=== PATIENT | female | born 1990 | race African-American/Black ===

== ENCOUNTER 2016-04-28 16:39 | Emergency (ER) | payer OTHER ==
[2016-04-28 16:58] VITALS: RESP 18
[2016-04-28] MEDS ORDERED: SODIUM CHLORIDE 0.9% 1,000 ML IV ONE (18:32)
[2016-04-28] MEDS ORDERED: ACETAMINOPHEN IV (For NPO) 1,000 MG in EMPTY BAG 1 BAG IVPB STA (18:33)
[2016-04-28 19:39] LABS: Appearance,Urine Clear (Clear); Bacteria,Urine Occasional /hpf; Bilirubin,Urine Negative (Negative); Glucose,Urine (UA) Negative (Negative); Ketones,Urine Negative (Negative); Leukocyte Esterase,Urine Large (Negative); Mucus,Urine Rare /hpf; Nitrite,Urine Negative (Negative); PH, Urine 6.5 (5.0-8.0); Particle Count 3645; Protein,Urine Negative (Negative); RBC,Urine <1 /hpf (0-5); Squamous Epithelial Cell,Urine 8 /hpf (0-4); UA Billing (MACRO vs. MICRO) MICRO; Urobilinogen,Urine <2.0 mg/dL (<2.0); WBC,Urine 5 /hpf (0-5)
[2016-04-28 20:24] LABS: Basophils # (A) 0.1 k/uL (0-0.2); Basophils % (A) 1 %; CH 30.2; CHCM 34.6; Eosinophils # (A) 0.2 k/uL (0-0.7); Eosinophils % (A) 2 %; HCT 41.5 % (34.0-46.0); HDW 2.22; HGB 13.8 gm/dL (11.4-16.0); Luc % (Auto) 1; Lymphocytes # (A) 2.5 k/uL (1.0-4.8); Lymphocytes % (A) 30 %; MCHC 33.1 g/dL (31.0-37.0); MCV 87.6 fL (80.0-100.0); Mean Platelet Volume 6.7; Monocytes # (A) 0.4 k/uL (0-1.0); Monocytes % (A) 5 %; Neutrophils # (A) 5.1 k/uL (1.3-7.7); Neutrophils % (A) 61 %; RBC 4.74 m/uL (3.80-5.40); RDW 12.7 % (11.5-15.5); WBC 8.4 k/uL (3.8-10.6); WBC (Perox) 8.31
[2016-04-28 20:37] LABS: ALT 79 U/L (9-52); AST 40 U/L (14-36); Alkaline Phosphatase 60 U/L (38-126); Anion Gap 14 mmol/L; Blood Urea Nitrogen 6 mg/dL (7-17); Calcium 10.6 mg/dL (8.4-10.2); Carbon Dioxide 23 mmol/L (22-30); Chloride 102 mmol/L (98-107); Glucose 89 mg/dL (74-99); Non-African American GFR(MDRD) >60 (>60 ml/min/1.73 sqM); Potassium 4.4 mmol/L (3.5-5.1); Sodium 139 mmol/L (137-145); Total Bilirubin 0.5 mg/dL (0.2-1.3); Total Protein 8.6 g/dL (6.3-8.2)
--- NOTE | 2016-04-28 21:07 | US ---
EXAMINATION TYPE: US OB <=14 wks transvag DATE OF EXAM: 04/28/2016 8:43 PM COMPARISON: NONE CLINICAL HISTORY: EC patient with LLQ pain x 4 weeks; EXAM PERFORMED: Transvaginal (TV) and Transabdominal (TA) EXAM MEASUREMENTS: GESTATIONAL AGE / DATING Physician Established: not established Dates by LMP: ( 7 weeks/0 days) EDC: 12/15/2016 Dates by First Scan: today Dates by Current Scan: (6 weeks/5 days) EDC: 12/17/2016 MATERNAL ANATOMY Uterus: 9.4 x 6.0 x 5.2cm; anteverted, couple of Nabothian cysts in CX Right Ovary: 3.8 x 2.7 x 2.9cm Left Ovary: 2.9 x 1.5 x 1.7cm Post CDS / Adnexa: wnl Presence of free fluid: small amount in posterior CDS = 2.3 x 1.4 x 0.7cm Presence of corpus luteal cyst: in right ovary = 2.7 x 2.3 x 2.3cm Presence of subchorionic bleed: hypoechoic area at superior uterus = 1.0 x 2.9 x 0.3cm GESTATION / SURVEY CRL: 0.8cm (6 weeks/5 days) Yolk Sac (normal less than 6mm): 2.3mm Heart Rate: 127 bpm Rhythm: Normal IUP: Viable IUP Date of LMP: 03/10/2016 Beta HcG (if available): detected in urine TECHNOLOGIST IMPRESSION: Single, live, IUP,6 weeks/5 days, EDC: 12/17/2016, HR 127bpm; possible LIDIA superior to gestational sac. IMPRESSION: There is a small fluid collection adjacent to the gestational sac suggestive of a minimal subchorioni c hemorrhage. This measures 10 x 3 mm. The ultrasound gestational age is 6 weeks 5 days. There is min imal free fluid in the cul-de-sac.
[2016-04-28 21:25] LABS: HCG,Quantitative Serum 36407.9 mIU/mL
--- NOTE | 2016-04-28 21:33 | ED ---
General Adult HPI - General Chief complaint: Abdominal Pain Stated complaint: abd pain/headache/nausea Time Seen by Provider: 04/28/16 17:51 Source: patient Mode of arrival: ambulatory - History of Present Illness Initial comments: 26-year-old female presented for evaluation of left lower quadrant abdominal pain for the last 3 weeks with associated nausea. She states that she had scheduled an appointment with her primary care physician but was unable to wait until May 15 to go and see him. She denies any associated vomiting, vaginal discharge, vaginal bleeding, lightheadedness, dizziness, fevers, chills. When asked if she could be she positive and stated that she actually hadn't had her period since February and that this was a possibility. She states her and her been trying to get for some time but a been unable to do so. - Related Data Home Medications Medication Instructions Recorded Confirmed Albuterol Inhaler [Ventolin Hfa 1 - 2 puff INHALATION RT-Q6H PRN 04/28/16 Inhaler] Previous Rx's Medication Instructions Recorded Dcw-Rmnf-Dyrsy Acid 1 cap PO DAILY #30 cap 04/28/16 [-U Capsule] Allergies Allergy/AdvReac Type Severity Reaction Status Date / Time ibuprofen [From Motrin] Allergy Unknown Verified 04/28/16 17:53 Review of Systems ROS Statement: Those systems with pertinent positive or pertinent negative responses have been documented in the HPI. General: Patient denies fever, chills, or vomiting. Positive nausea. HEENT: No visual changes. No eye pain. No nasal symptoms. No dysphagia.No odynophagia. No ENT pain. Cardiac: No chest pain. No palpitations. Pulmonary; No dyspnea. Denies cough GI: Positive left lower quadrant abdominal pain. Positive loose stools. No constipation. No bowel habit changes. No melena. No hematochezia. : No dysuria.No hematuria. No hesitancy. No urgency. No renal lithiasis history. Musculoskeletal: No musculoskeletal pain. Orthopedic: Denies fracture history. Integumentary: Denies rash. Denies pruritis. Neurologic: Denies any lateralizing weakness. Denies numbness. Denies tingling. No seizure activity. Denies TIA or CVA. Heme/Onc: Denies anemia. Denies cancer. Denies adenopathy. ROS Other: All systems not noted in ROS Statement are negative. Past Medical History Past Medical History: No Reported History History of Any Multi-Drug Resistant Organisms: None Reported Additional Past Surgical History / Comment(s): Eye surgery Past Psychological History: No Psychological Hx Reported Smoking Status: Never smoker Past Alcohol Use History: Occasional Past Drug Use History: None Reported General Exam - General Exam Comments Initial Comments: General: The patient is awake and alert, in no distress, and does not appear acutely ill. Eye: Pupils are equal, round and reactive to light, extra-ocular movements are intact; there is normal conjunctiva bilaterally. No signs of icterus. Ears, nose, mouth and throat: There are moist mucous membranes and no oral lesions. Neck: The neck is supple, there is no tenderness or JVD. Cardiovascular: There is a regular rate and rhythm. No murmur, rub or gallop is appreciated. Respiratory: Lungs are clear to auscultation, respirations are non-labored, breath sounds are equal. No wheezes, stridor, rales, or rhonchi. Gastrointestinal: Soft, non-distended, mild superpubic and left lower quadrant abdominal tenderness. There is no rebound or guarding present. No CVA tenderness. Bowel sounds are unremarkable. Back: There is no tenderness to palpation in the midline. There is no obvious deformity. No rashes noted. Musculoskeletal: Normal ROM, no tenderness, There is no pedal edema. There is no calf tenderness or swelling. Sensation intact. Pulses equal bilaterally 2+. Neurological: CN II-XII intact, There are no obvious motor or sensory deficits. Coordination appears grossly intact. Speech is normal. Skin: Skin is warm and dry and no rashes or lesions are noted. Psychiatric: Cooperative, appropriate mood & affect, normal judgment. Course Vital Signs 04/28/16 04/28/16 16:55 22:24 Temperature 98.6 F 99.2 F Pulse Rate 73 70 Respiratory 18 18 Rate Blood Pressure 120/67 109/63 O2 Sat by Pulse 100 99 Oximetry Medical Decision Making - Medical Decision Making 26-year-old female presenting for evaluation of left lower quadrant abdominal pain for the last 3 weeks. She has an appointment set up with her primary care physician for May 15 but son about the wait that long. Physical examination confirm left lower quadrant abdominal pain with suprapubic tenderness as well. There are no peritoneal signs, rigidity, or guarding. She states it is a possibility that she's and she hasn't had a period since February. We'll obtain labs, ultrasound pelvis, and provide IV fluids and Zofran. Labs revealed positive urine test and a quantitative beta hCG was ordered. Pelvic ultrasound revealed a 6 week 5 day IUP with mild subchorionic hemorrhage. The beta-hCG was also appropriately elevated. She was informed of these results and that she would be given a prescription for vitamins and instructions to follow-up with her [employer]CH[employer]IC. She was further advised to return to this facility if her symptoms are worsened or persist. She was reevaluated and had improvement in her symptoms. She acknowledged an understanding of this information and agreed with this plan of care. Pt was not given a prescription for her bacteriuria. An attempt was made to call but there was no answer. A message was left on her voicemail to call the hospital to obtain antibiotic for her bacteriuria. - Lab Data Result diagrams: 04/28/16 20:10 04/28/16 20:10 Lab Results 04/28/16 04/28/16 04/28/16 Range/Units 19:25 19:25 20:10 WBC 8.4 (3.8-10.6) k/uL RBC 4.74 (3.80-5.40) m/uL Hgb 13.8 (11.4-16.0) gm/dL Hct 41.5 (34.0-46.0) % MCV 87.6 (80.0-100.0) fL MCH 29.0 (25.0-35.0) pg MCHC 33.1 (31.0-37.0) g/dL RDW 12.7 (11.5-15.5) % Plt Count 365 (150-450) k/uL Neutrophils % 61 % Lymphocytes % 30 % Monocytes % 5 % Eosinophils % 2 % Basophils % 1 % Neutrophils # 5.1 (1.3-7.7) k/uL Lymphocytes # 2.5 (1.0-4.8) k/uL Monocytes # 0.4 (0-1.0) k/uL Eosinophils # 0.2 (0-0.7) k/uL Basophils # 0.1 (0-0.2) k/uL Sodium (137-145) mmol/L Potassium (3.5-5.1) mmol/L Chloride (98-107) mmol/L Carbon Dioxide (22-30) mmol/L Anion Gap mmol/L BUN (7-17) mg/dL Creatinine (0.52-1.04) mg/dL Est GFR (MDRD) Af Amer (>60 ml/min/1.73 sqM) Est GFR (MDRD) Non-Af (>60 ml/min/1.73 sqM) Glucose (74-99) mg/dL Calcium (8.4-10.2) mg/dL Total Bilirubin (0.2-1.3) mg/dL AST (14-36) U/L ALT (9-52) U/L Alkaline Phosphatase (38-126) U/L Total Protein (6.3-8.2) g/dL Albumin (3.5-5.0) g/dL HCG, Quant mIU/mL Urine Color Yellow Urine Appearance Clear (Clear) Urine pH 6.5 (5.0-8.0) Ur Specific [place] 1.010 (1.001-1.035) Urine Protein Negative (Negative) Urine Glucose (UA) Negative (Negative) Urine Ketones Negative (Negative) Urine Blood Negative (Negative) Urine Nitrate Negative (Negative) Urine Bilirubin Negative (Negative) Urine Urobilinogen <2.0 (<2.0) mg/dL Ur Leukocyte Esterase Large H (Negative) Urine RBC <1 (0-5) /hpf Urine WBC 5 (0-5) /hpf Ur Squamous Epith Cells 8 H (0-4) /hpf Urine Bacteria Occasional H (None) /hpf Urine Mucus Rare H (None) /hpf Urine HCG, Qual Detected (Not Detectd) 04/28/16 Range/Units 20:10 WBC (3.8-10.6) k/uL RBC (3.80-5.40) m/uL Hgb (11.4-16.0) gm/dL Hct (34.0-46.0) % MCV (80.0-100.0) fL MCH (25.0-35.0) pg MCHC (31.0-37.0) g/dL RDW (11.5-15.5) % Plt Count (150-450) k/uL Neutrophils % % Lymphocytes % % Monocytes % % Eosinophils % % Basophils % % Neutrophils # (1.3-7.7) k/uL Lymphocytes # (1.0-4.8) k/uL Monocytes # (0-1.0) k/uL Eosinophils # (0-0.7) k/uL Basophils # (0-0.2) k/uL Sodium 139 (137-145) mmol/L Potassium 4.4 (3.5-5.1) mmol/L Chloride 102 (98-107) mmol/L Carbon Dioxide 23 (22-30) mmol/L Anion Gap 14 mmol/L BUN 6 L (7-17) mg/dL Creatinine 0.56 (0.52-1.04) mg/dL Est GFR (MDRD) Af Amer >60 (>60 ml/min/1.73 sqM) Est GFR (MDRD) Non-Af >60 (>60 ml/min/1.73 sqM) Glucose 89 (74-99) mg/dL Calcium 10.6 H (8.4-10.2) mg/dL Total Bilirubin 0.5 (0.2-1.3) mg/dL AST 40 H (14-36) U/L ALT 79 H (9-52) U/L Alkaline Phosphatase 60 (38-126) U/L Total Protein 8.6 H (6.3-8.2) g/dL Albumin 5.0 (3.5-5.0) g/dL HCG, Quant 35258.9 mIU/mL Urine Color Urine Appearance (Clear) Urine pH (5.0-8.0) Ur Specific [place] (1.001-1.035) Urine Protein (Negative) Urine Glucose (UA) (Negative) Urine Ketones (Negative) Urine Blood (Negative) Urine Nitrate (Negative) Urine Bilirubin (Negative) Urine Urobilinogen (<2.0) mg/dL Ur Leukocyte Esterase (Negative) Urine RBC (0-5) /hpf Urine WBC (0-5) /hpf Ur Squamous Epith Cells (0-4) /hpf Urine Bacteria (None) /hpf Urine Mucus (None) /hpf Urine HCG, Qual (Not Detectd) Disposition Clinical Impression: Intrauterine , incidental, Subchorionic hemorrhage in first trimester , Abdominal pain affecting Disposition: HOME SELF-CARE Condition: Stable Instructions: Abdominal Pain in (ED) Additional Instructions: Please use medication as discussed. Please follow up with family doctor if symptoms have not improved over the next two days. Please return to the emergency room if your symptoms increase or worsen or for any other concerns. Prescriptions: Cww-Zibj-Qnxjy Acid [-U Capsule] 1 cap PO DAILY #30 cap Referrals: Ray Ward MD [Primary Care Provider] - 1-2 days Time of Disposition: 21:30
[2016-04-28 22:26] VITALS: BP 109/63; PULSE 70; TEMP 99.2
== END 2016-04-28 22:23 | disposition home or self-care (01) ==
LOC: EC 16:39
DX: O46.8X1 Other antepartum hemorrhage, first trimester (principal); R10.32 Left lower quadrant pain; O28.8 Other abnormal findings on antenatal screening of mother; Z3A.01 Less than 8 weeks gestation of pregnancy; Z88.6 Allergy status to analgesic agent
CPT/HCPCS: 36415; 76801; 76817; 80053; 81001; 81025; 84702; 85025; 99284

== ENCOUNTER → 2016-08-02 | Outpatient (CLI) | payer OTHER ==
--- NOTE | 2016-08-03 08:42 | US ---
EXAMINATION TYPE: US OB anatomy transabd DATE OF EXAM: 08/02/2016 4:31 PM COMPARISON: US HISTORY: O36.62X0 LARGE FOR DATES TECHNIQUE: EXAM MEASUREMENTS: GESTATIONAL AGE / DATING Physician Established: (20 weeks/5 days) EDC: 12/15/2016 Dates by LMP: (20 weeks/5 days) EDC: 12/15/2016 Dates by First Scan: (20 weeks/3 days) EDC: 12/17/2016 Dates by Current Scan for: (21 weeks/1 days) EDC: 12/12/2016 SURVEY IUP: Single PLACENTA: Anterior PREVIA: No previa TONE: 17.5 cm Normal CERVICAL LENGTH (transabdominal: norm > 3.0cm): 3.9 cm BIOMETRY PRESENTATION: Breech BPD: 4.9 cm 21 weeks / 0 days HC: 18.7 cm 21 weeks / 0 days AC: 16.3 cm 21 weeks / 3 days FL: 3.5 cm 21 weeks / 1 days ESTIMATED WEIGHT IN GRAMS: 410 grams ESTIMATED WEIGHT IN LBS/OZS: 0 lbs. 14 oz. WEIGHT PERCENTAGE BASED ON ESTABLISHED DATE: 74.6 % HC/AC: 1.2 Normal FL/AC: 21.7 Normal HEART RATE: 155 bpm RHYTHM: Normal ANATOMY SEEN (within normal limits): * Lateral Vent (< 1 cm) 0.5 cm * Cisterna Magna (< 1.1 cm) 0.5 cm * Nuchal Fold (< 0.6 cm) 0.3 cm * Cerebellum (varies with age) 1.9 cm Choroid Plexus (bilateral) Midline Falx Cavus Septi Pellucidi Four Chamber Heart Outflow tracts: LVOT/RVOT Stomach Situs Nose / Lips Kidneys (bilateral) Bladder Cord Insert Three Vessel Cord Longitudinal Spine Transverse Spine Arms (bilateral) Legs (bilateral) ANATOMY NOT SEEN: Diaphragm - missed growth according to dates, images out of sequence due to machine freezing up and needing to be reboot ed. IMPRESSION: 1. Single intrauterine gestation estimated at 21 weeks 1 day gestation based on the current ultrasoun d measurements. This would've a calculated EDC of 12/12/2016. Correlate this with her physician establ ished EDC of 12/15/2016. 2. Cardiac activity measures 155 bpm. 3. Diaphragm is not delineated on the current exam.
== END | disposition home or self-care (01) ==
LOC: RADUSWWP 15:21
PROVIDERS: ATTEND Obstetrics & Gynecology
DX: O36.62X0 Maternal care for excessive fetal growth, second trimester, not applicable or unspecified (principal); Z3A.21 21 weeks gestation of pregnancy
CPT/HCPCS: 76811

== ENCOUNTER → 2016-09-25 | Outpatient (CLI) | payer OTHER ==
[2016-09-25 10:26] LABS: CH 31.2; HCT 31.6 % (34.0-46.0); HGB 11.4 gm/dL (11.4-16.0); MCH 32.3 pg (25.0-35.0); MCHC 36.1 g/dL (31.0-37.0); MCV 89.5 fL (80.0-100.0); Mean Platelet Volume 6.1; RBC 3.53 m/uL (3.80-5.40); WBC 9.2 k/uL (3.8-10.6)
[2016-09-25 10:33] LABS: Glucose 155 mg/dL (74-99); Non-African American GFR(MDRD) >60 (>60 ml/min/1.73 sqM)
[2016-09-25 11:03] LABS: Hepatitis B Surface Ag Index 0.06
[2016-09-25 13:51] LABS: Appearance,Urine Cloudy (Clear); Bilirubin,Urine Negative (Negative); Glucose,Urine (UA) Negative (Negative); Ketones,Urine Negative (Negative); Leukocyte Esterase,Urine Small (Negative); Mucus,Urine Rare /hpf; Nitrite,Urine Negative (Negative); PH, Urine 5.5 (5.0-8.0); Particle Count 5335; Protein,Urine Negative (Negative); RBC,Urine 1 /hpf (0-5); Specific Gravity,Urine 1.012 (1.001-1.035); Squamous Epithelial Cell,Urine 6 /hpf (0-4); UA Billing (MACRO vs. MICRO) MICRO; Urobilinogen,Urine <2.0 mg/dL (<2.0); WBC,Urine 1 /hpf (0-5)
[2016-09-26 05:14] LABS: Toxoplasma Antibody (IgG) <3.0 IU/mL (<7.2)
[2016-09-26 06:38] LABS: HIV-1/HIV-2 Ab Screen NONREAC (NON REAC)
== END | disposition home or self-care (01) ==
LOC: LABWHC1 08:50
PROVIDERS: ATTEND Obstetrics & Gynecology
DX: Z34.82 Encounter for supervision of other normal pregnancy, second trimester (principal); Z3A.00 Weeks of gestation of pregnancy not specified
CPT/HCPCS: 36415; 81001; 82565; 82947; 83021; 85027; 86762; 86777; 86778; 86780; 86850; 86900; 86901; 87086; 87340; 87389

== ENCOUNTER → 2016-11-10 | Outpatient (CLI) | payer OTHER ==
[2016-11-10 15:44] LABS: Glucose 3 Hour, Gest 129 mg/dL
== END | disposition home or self-care (01) ==
LOC: LABWHC1 10:40
PROVIDERS: ATTEND Obstetrics & Gynecology
DX: O99.810 Abnormal glucose complicating pregnancy (principal); Z3A.00 Weeks of gestation of pregnancy not specified
CPT/HCPCS: 36415; 82951; 82952

== ENCOUNTER 2016-11-20 13:23 | Outpatient (CLI) | payer OTHER ==
[2016-11-20 14:18] LABS: Glucose,Whole Blood 123 mg/dL (75-99)
[2016-11-20 14:28] LABS: Appearance,Urine Cloudy (Clear); Bacteria,Urine Moderate /hpf; Bilirubin,Urine Negative (Negative); Glucose,Urine (UA) Negative (Negative); Ketones,Urine Negative (Negative); Leukocyte Esterase,Urine Negative (Negative); Mucus,Urine Occasional /hpf; Nitrite,Urine Negative (Negative); PH, Urine 5.5 (5.0-8.0); Particle Count 6587; Protein,Urine Trace (Negative); RBC,Urine <1 /hpf (0-5); Specific Gravity,Urine 1.012 (1.001-1.035); Squamous Epithelial Cell,Urine 4 /hpf (0-4); UA Billing (MACRO vs. MICRO) MICRO; Urobilinogen,Urine <2.0 mg/dL (<2.0); WBC,Urine 2 /hpf (0-5)
[2016-11-20 15:00] VITALS: BP 129/69; PULSE 103; RESP 18; TEMP 96.2
--- NOTE | 2017-02-14 08:18 | P.MSEPDOC ---
Presenting Problems - Arrival Data Date of Arrival on Unit: 11/20/16 Time of Arrival on Unit: 13:23 Mode of Transport: Ambulatory - Complaint OB-Reason for Admission/Chief Complaint: Decreased Movement Medical History - Information : 3 Para: 1 Term: 1 : 0 Abortions: Spontaneous or Elective: 1 Number of Living Children: 1 - Gestational Age Gestational Age by PRABHAKAR (wks/days): 36 Weeks and 3 Days - History Complications: GDM Comment: Diet controlled Review of Systems - Review of Systems Constitutional: No problems Breast: No problems ENT: No problems Cardiovascular: No problems Respiratory: No problems Gastrointestinal: No problems Genitourinary: No problems Musculoskeletal: No problems Neurological: No problems Skin: No problems Vital Signs - Temperature Temperature: 96.2 F Temperature Source: Skin - Pulse Brachial Pulse Rate: 103 Pulse Assessment Method: Automatic Cuff - Respirations Respiratory Rate: 18 Oxygen Delivery Method: Room Air - Blood Pressure Right Arm Blood Pressure: 129/69 Blood Pressure Mean: 89 Blood Pressure Source: Automatic Cuff Medical Screen Scoring (Pre) - Cervical Exam Dilation: Exam Deferred - Uterine Contractions Frequency: N/A - Maternal Vital Signs Maternal Temperature: N/A Maternal Blood Pressure: N/A Signs of Preeclampsia: N/A Maternal Respirations: N/A - Maternal Trauma Maternal Trauma: N/A - Assessment Baseline FHR: 150 Heart Rate - NICHD Category: Category I (Normal) = 0 NST: Reactive - Total Score Total Score (Pre): 0 - Level of Risk Level of Risk: Low (0-5) Physician Notification (Pre) - Physician Notified Physician Notified Date: 11/20/16 Physician Notified Time: 14:15 Physician/Practitioner Notifed:: Dr kennedy New Order Received: Yes - Notification Comment Comment: Accucheck and UA order. Called Dr kennedy back at [phone] with accucheck and UA results- order to discharge home and follow up with scheduled appt Disposition - Disposition OB Disposition: Triage, Discharge to home, Written follow up instructions reviewed Discharge Date: 11/20/16 Discharge Time: 14:45 I agree with the RN Medical Screening Exam: Yes Risk & Benefit of care provided described in d/c instruction: Yes Diagnosis: DECREASED MOVEMENTS, UNSP TRIMESTER, UNSP
== END 2016-11-20 14:45 | disposition home or self-care (01) ==
LOC: FBPOP 13:23
PROVIDERS: ATTEND Obstetrics & Gynecology
DX: O36.8190 Decreased fetal movements, unspecified trimester, not applicable or unspecified (principal); Z3A.00 Weeks of gestation of pregnancy not specified
CPT/HCPCS: 59025; 81001; G0463; 99213

== ENCOUNTER → 2016-11-29 | Outpatient (CLI) | payer OTHER ==
[2016-11-29 13:12] LABS: Hemoglobin A1C 6.8 % (4.2-6.1)
== END | disposition home or self-care (01) ==
LOC: LABWHC1 10:52
PROVIDERS: ATTEND Obstetrics & Gynecology
DX: O24.419 Gestational diabetes mellitus in pregnancy, unspecified control (principal); Z3A.00 Weeks of gestation of pregnancy not specified
CPT/HCPCS: 36415; 83036

== ENCOUNTER 2016-12-08 10:49 | Inpatient (IN) | payer OTHER ==
[2016-12-08] MEDS ORDERED: CITRIC ACID-SODIUM CITRATE 15 ML CUP PO ONE (11:01)
[2016-12-08] MEDS ORDERED: LACTATED RINGERS 1,000 ML IV SCH (11:15)
[2016-12-08] MEDS ORDERED: ceFAZolin 3 GM in SODIUM CHLORIDE 0.9% 100 ML IVPB ONE (11:15)
[2016-12-08 11:22] LABS: Glucose,Whole Blood 116 mg/dL (75-99)
[2016-12-08 11:24] LABS: Basophils % (A) 0 %; CH 30.4; CHCM 33.4; Eosinophils # (A) 0.1 k/uL (0-0.7); Eosinophils % (A) 2 %; HCT 31.3 % (34.0-46.0); HDW 2.31; HGB 10.1 gm/dL (11.4-16.0); Luc # (Auto) 0.12; Luc % (Auto) 2; Lymphocytes # (A) 1.3 k/uL (1.0-4.8); Lymphocytes % (A) 21 %; MCH 29.5 pg (25.0-35.0); MCHC 32.3 g/dL (31.0-37.0); MCV 91.2 fL (80.0-100.0); Mean Platelet Volume 8.3; Monocytes # (A) 0.3 k/uL (0-1.0); Monocytes % (A) 5 %; Neutrophils # (A) 4.3 k/uL (1.3-7.7); Neutrophils % (A) 70 %; RBC 3.43 m/uL (3.80-5.40); RDW 14.7 % (11.5-15.5); WBC 6.1 k/uL (3.8-10.6); WBC (Perox) 6.69
[2016-12-08 11:29] VITALS: BMI 49.1
[2016-12-08 12:01] LABS: Hemoglobin A1C 6.6 % (4.2-6.1)
[2016-12-08] MEDS ORDERED: OXYTOCIN 10 UNIT/ML 1 ML VIAL ONE (12:15)
[2016-12-08] MEDS ORDERED: ONDANSETRON 4 MG/2 ML VIAL ONE (12:15)
[2016-12-08] MEDS ORDERED: ePHEDrine 50 MG/ML 1 ML AMP ONE (12:15)
[2016-12-08] MEDS ORDERED: NALBUPHINE 10 MG/ML AMPUL ONE (12:15)
[2016-12-08] MEDS ORDERED: LACTATED RINGERS 1,000 ML BAG IV ONE (12:15)
[2016-12-08] MEDS ORDERED: ZOLPIDEM 5 MG TAB PO PRN (13:12)
[2016-12-08] MEDS ORDERED: diphenhydrAMINE 25 MG CAP PO PRN (13:12)
[2016-12-08] MEDS ORDERED: NALOXONE 0.4 MG/ML 1 ML VIAL IV PRN ×2 (13:12→13:43)
[2016-12-08] MEDS ORDERED: METOCLOPRAMIDE 5 MG/ML 2 ML VIAL IVP PRN (13:12)
[2016-12-08] MEDS ORDERED: Acetaminophen-Codeine 300-30mg TAB PO PRN ×2 (13:12)
[2016-12-08] MEDS ORDERED: ACETAMINOPHEN TAB 325 MG TAB PO PRN (13:12)
[2016-12-08] MEDS ORDERED: diphenhydrAMINE 50 MG CAP PO PRN (13:12)
[2016-12-08] MEDS ORDERED: ONDANSETRON 4 MG/2 ML VIAL IVP PRN (13:12)
[2016-12-08] MEDS ORDERED: diphenhydrAMINE 50 MG/ML 1 ML VIAL IVP PRN ×3 (13:12→13:43)
--- NOTE | 2016-12-08 13:18 | P.HPOB ---
History of Present Illness H&P Date: 12/08/16 Chief Complaint: Intrauterine at 39 weeks macrosomia: Poorly controlled gestationa Patient is a 26-year-old at 39 weeks gestation who arrives for primary low transverse section due to macrosomia and poorly controlled gestational diabetes. Patient has been poorly compliant with much of our treatment plans she did not do her 1 hour Glucola screen tubal after approximately 30 weeks and did not do her 3 hour Glucola screen until 35 weeks. She's been measuring very large since about 28 weeks. There have been 2 occasions when she did not see me for 8 or 9 weeks between her appointments. Since 34 weeks she has done much better with her complaints. However he will but A1c was elevated and showed average Coso approximate 148. We did start her on glyburide but at the point where she was able to start taking the medication realistically it was not going to make enormous amount of difference. A long discussion was held with her with suspected macrosomia and risk of shoulder dystocia and she is opted for primary section. Risks/benefits/ alternatives to this procedure were discussed with patient in detail and did include but were not limited to damage to bladder, bowel, vascular injuries, nerve injuries, bleeding, infection, ureteral damage. On physical exam vital signs are stable and afebrile. Heart regular, lungs clear, extremities without pain. Abdomen is soft gravid uterus is noted patient fundal height is approximately 44 cm. Ultrasound on the office showed baby to be greater than the 90th to the 95th percentile and we suspect macrosomia. It is also noted on the ultrasound the head scopic shoulder procedure, its were flipped with baby having large shoulders her abdominal circumference and is not as large head circumference. All questions are answered her prior to proceeding to the operating room and we'll plan for a primary section today. Past Medical History Past Medical History: Asthma, Diabetes Mellitus Additional Past Medical History / Comment(s): Sickle Cell Anemia trait, gestational diabetes History of Any Multi-Drug Resistant Organisms: None Reported Additional Past Surgical History / Comment(s): Eye surgery Past Anesthesia/Blood Transfusion Reactions: No Reported Reaction Past Psychological History: ADD/ADHD Smoking Status: Never smoker Past Alcohol Use History: None Reported Past Drug Use History: None Reported - Past Family History Mother Family Medical History: No Reported History Medications and Allergies Home Medications Medication Instructions Recorded Confirmed Type glyBURIDE [Glyburide] 1.25 mg PO DAILY 12/08/16 12/08/16 History Allergies Allergy/AdvReac Type Severity Reaction Status Date / Time ibuprofen [From Motrin] Allergy Severe Anaphylaxis Verified 12/08/16 11:00 Exam Osteopathic Statement: *. No significant issues noted on an osteopathic structural exam other than those noted in the History and Physical/Consult. - Vital Signs Vital signs: Vital Signs Temp Pulse Resp BP Pulse Ox 12/08/16 11:00 96.0 F L 82 18 143/80 98 Intake and Output 12/07/16 12/08/16 12/08/16 22:59 06:59 14:59 Other: Weight 129.727 kg Patient Weight 12/09/16 06:59 Weight 129.727 kg Results Result Diagrams: 12/08/16 11:11 Abnormal Lab Results - Last 24 Hours (Table) 12/08/16 12/08/16 12/08/16 Range/Units 11:11 11:11 11:13 RBC 3.43 L (3.80-5.40) m/uL Hgb 10.1 L (11.4-16.0) gm/dL Hct 31.3 L (34.0-46.0) % POC Glucose (mg/dL) 116 H (75-99) mg/dL Hemoglobin A1c 6.6 H (4.2-6.1) %
--- NOTE | 2016-12-08 13:22 | P.OP ---
Date of Procedure: 12/08/16 Preoperative Diagnosis: Intrauterine at term: Macrosomia: Poorly controlled gestational diabetes Postoperative Diagnosis: Same Procedure(s) Performed: Primary low transverse section Implants: Anesthesia: spinal Surgeon: Poncho [place] Digital Marketing Manager #1: Neema Kim Estimated Blood Loss (ml): 800 IV fluids (ml): 1,000 Urine output (ml): 200 Pathology: other (Placenta) Condition: stable Disposition: floor Indications for Procedure: Operative Findings: Viable male scores of 9 and 9 at one and 5 minutes respectively and the weight was 9 lbs. 3 oz. Description of Procedure: Patient was taken to the operating suite where a spinal anesthetic was found be adequate. She was prepped and draped in the normal sterile fashion and placed in dorsal supine position with leftward tilt. Initially a Pfannenstiel skin incision was made and this incision was then carried through to the underlying layer of the fashion with second knife. Fascia was then nicked in the midline and this opening was extended laterally with House scissors. Superior and inferior aspect of this incision were then grasped tented up and bluntly and sharply dissected off the rectus muscles. Rectus muscles were then divided in the midline and blunt dissection through the peritoneum was made. This opening was then extended superiorly and inferiorly with good physical the station of both bowel and bladder. Bladder blade was then placed and bladder flap was identified and entered with Metzenbaum scissors and this opening was extended across the face of the uterus Metzenbaum scissors. Knife was then used to incise uterus this opening into the uterus was then completed with a hemostat and the incision was bluntly extended. Head was then H medically delivered followed by anterior posterior shoulders. Mouth nares were bulb suctioned once baby was fully delivered umbilical cord was clamped and cut in usual fashion an nursery personnel was present to assume care. Placenta was then delivered intact and Pitocin was added to the IV. Uterus was then exteriorized cleared of clots and debris and closed in 2 layers with 0 Vicryl suture. Once excellent hemostasis was obtained blood and debris was suctioned from the posterior cul-de-sac and the uterus was reinserted into the abdomen. Peritoneal layer was then closed with 0 Vicryl suture fascial layer was closed with 0 Vicryl suture one layer of 3-0 Vicryl was placed in the deep subcuticular tissues and the skin was then closed with 3-0 Vicryl on a Harley needle. Sponge, lap, needle counts were all correct 2. Patient was taken to the recovery room in stable and satisfactory condition.
[2016-12-08] MEDS ORDERED: MORPHINE SULFATE 4 MG/ML SYRINGE IVP PRN (13:43)
[2016-12-08] MEDS ORDERED: NALBUPHINE 10 MG/ML AMPUL IV PRN (13:43)
[2016-12-08] MEDS ORDERED: DIPH,PERTUS(ACELL)TETVAC-LF 0.5 ML VIAL IM ONE (13:45)
[2016-12-08] MEDS: LACTATED RINGERS 1,000 ML IV SCH (16:35)
[2016-12-08] MEDS ORDERED: HYDROcodone/APAP 5-325MG 1 EACH TAB PO PRN (17:01)
[2016-12-08] MEDS: HYDROcodone/APAP 5-325MG 1 EACH TAB PO PRN ×2 (19:13→23:06)
[2016-12-08] MEDS: SENNOSIDES-DOCUSATE SODIUM 1 EACH TAB PO SCH (19:13)
[2016-12-09] MEDS: LACTATED RINGERS 1,000 ML IV SCH (00:40)
[2016-12-09] MEDS: HYDROcodone/APAP 5-325MG 1 EACH TAB PO PRN ×5 (04:05→20:07)
[2016-12-09] MEDS: SENNOSIDES-DOCUSATE SODIUM 1 EACH TAB PO SCH ×2 (08:47→20:07)
--- NOTE | 2016-12-09 09:38 | P.PN ---
Progress Note - Text 0925 Anesthesia POD 1. Patient is status post syringe section under spinal anesthesia with intra-thecal preservative free morphine 300 g. Minimal pruritus, good post-op analgesia, and no headache or other complications.
--- NOTE | 2016-12-09 13:31 | P.PNOBGPC ---
Subjective - Subjective Principal diagnosis: S/P 1*LTCS POD #1 Interval history: Pt Seen and examined. Denies nausea, vomiting, chest pain, shortness of breath or calf pain. Tolerating regular diet and passing flatus. Patient reports: Reports appetite normal, Reports voiding normally, Reports pain well controlled, Reports ambulating normally : doing well Objective - Vital Signs Latest vital signs: Vital Signs Temp Pulse Resp BP Pulse Ox 12/09/16 08:00 98.3 F 76 16 118/68 98 12/09/16 04:00 97.9 F 81 16 133/62 12/09/16 00:00 98.2 F 74 16 127/67 100 12/08/16 20:00 97.6 F 76 16 134/69 98 12/08/16 18:00 16 12/08/16 16:43 16 12/08/16 15:07 75 16 134/77 95 12/08/16 14:37 64 16 132/79 99 12/08/16 14:07 95.5 F L 71 17 133/66 97 12/08/16 13:52 15 133/64 98 12/08/16 13:37 55 L 14 123/73 100 Intake and Output 12/08/16 12/09/16 12/09/16 22:59 06:59 14:59 Intake Total 1225 Output Total 1500 700 Balance -1500 525 Intake: Intake, IV Titration 625 Amount Lactated Ringers 1,000 ml 625 @ 125 mls/hr IV .Q8H [facility] Rx#:[id number] Oral 600 Output: Urine 1500 700 Uretheral (Morrell) 300 Other: Voiding Method Indwelling Catheter # Voids 1 0 - Exam Lungs: bilateral: normal Chest: Normal S1, Normal S2 Extremities: Present: normal Abdomen: Present: normal appearance, soft. Absent: distention, tenderness Incision: Present: normal, dry, intact Uterus: Present: normal, firm Assessment and Plan (1) Status post primary low transverse section Narrative/Plan: 1. Increase ambulation 2. Continue pain control 3. Continue postoperative care Current Visit: Yes Status: Acute Code(s): Z98.891 - HISTORY OF UTERINE SCAR FROM PREVIOUS SURGERY SNOMED Code(s): 718098911
[2016-12-09] MEDS: SIMETHICONE 80 MG CHEWABLE PO PRN (16:03)
[2016-12-10] MEDS: HYDROcodone/APAP 5-325MG 1 EACH TAB PO PRN ×6 (00:01→20:10)
[2016-12-10] MEDS: SENNOSIDES-DOCUSATE SODIUM 1 EACH TAB PO SCH ×2 (08:20→20:10)
--- NOTE | 2016-12-10 09:32 | P.PNOBGPC ---
Subjective - Subjective Principal diagnosis: S/P 1*LTCS POD #2 Interval history: Pt seen and examined. Denies N/V, F/C, CP, SOB or calf pain. She says she has some numbness in her hands when she lifts her arms over her head. Discussed likely a musculoskeletal issue. Patient reports: Reports appetite normal, Reports voiding normally, Reports pain well controlled, Reports ambulating normally : doing well Objective - Vital Signs Latest vital signs: Vital Signs Temp Pulse Resp BP Pulse Ox 12/10/16 08:23 98.0 F 101 H 16 132/88 100 12/10/16 04:00 98.0 F 106 H 16 143/81 12/10/16 00:00 99.7 F H 110 H 16 129/69 12/09/16 16:00 99.0 F 93 18 137/95 12/09/16 12:00 98.1 F 91 16 136/80 Intake and Output 12/09/16 12/10/16 12/10/16 22:59 06:59 14:59 Intake Total 600 600 600 Balance 600 600 600 Intake: Oral 600 600 600 Other: # Voids 2 2 2 - Exam Lungs: bilateral: normal Chest: Normal S1, Normal S2 Extremities: Present: normal Abdomen: Present: normal appearance, soft. Absent: distention, tenderness Incision: Present: normal, dry, intact Uterus: Present: normal, firm Assessment and Plan (1) Status post primary low transverse section Narrative/Plan: 1. continue po care. 2. increase ambulation Current Visit: Yes Status: Acute Code(s): Z98.891 - HISTORY OF UTERINE SCAR FROM PREVIOUS SURGERY SNOMED Code(s): 781058254
[2016-12-10] MEDS: SIMETHICONE 80 MG CHEWABLE PO PRN (20:16)
[2016-12-11] MEDS: HYDROcodone/APAP 5-325MG 1 EACH TAB PO PRN ×6 (00:03→20:15)
[2016-12-11] MEDS: SENNOSIDES-DOCUSATE SODIUM 1 EACH TAB PO SCH (08:23)
--- NOTE | 2016-12-11 08:52 | P.PN ---
Progress Note - Text Patient seen and evaluated postop day 3. She complains of severe worsening pain. Her pain is in her lower abdomen after incision. She reports that the nurse came in and saw her belly and this caused her to be in severe pain and she was nearly in tears. She relates that she has been up ambulating and tolerated that well. She is tolerating her diet. Previously she was not having difficulty voiding but this morning she says sheep Kayla and there were blood clots coming out of her urine. It is unclear if these were truly from her bladder or if they were just uterine blood clots in the vagina. We'll need to do red rubber catheter and bladder scan. Her pain this morning is out of performed to what I would expect for postop day 3 per tickly in the face of her having pain was well-controlled yesterday. I do not think that there is a primary bladder issue i.e. laceration, as I would expect something to seen previously to this and there was no blood in her urine during the surgery. Her incisions otherwise clean dry and intact. Her heart is otherwise regular and her lungs are clear. She has 1+ pitting edema bilateral lower extremities. Her abdomen is otherwise soft her incision is intact and her uterus is firm. Due to her anaphylactic reaction to nonsteroidal anti-inflammatories we are having some difficulty in that we cannot decrease the inflammation that she is getting. We may need to make another change for pain medication if her pain is going to remain this severe. Alternatives consideration could be given to high and Stadol for severe breakthrough pain only. At this time all questions are answered for the patient all returned hopefully over the noon hour reevaluate her as a day moved forward.
[2016-12-11] MEDS ORDERED: BUTORPHANOL 1 MG/ML 1 ML VIAL IM PRN (08:53)
[2016-12-11 12:12] LABS: Appearance,Urine Clear (Clear); Bilirubin,Urine Negative (Negative); Glucose,Urine (UA) Negative (Negative); Ketones,Urine Negative (Negative); Leukocyte Esterase,Urine Negative (Negative); Nitrite,Urine Negative (Negative); PH, Urine 5.5 (5.0-8.0); Protein,Urine Trace (Negative); Specific Gravity,Urine 1.012 (1.001-1.035); UA Billing (MACRO vs. MICRO) CHEM; Urobilinogen,Urine <2.0 mg/dL (<2.0)
[2016-12-11] MEDS: SIMETHICONE 80 MG CHEWABLE PO PRN (13:11)
[2016-12-12] MEDS: HYDROcodone/APAP 5-325MG 1 EACH TAB PO PRN ×4 (00:32→12:36)
[2016-12-12] MEDS: SIMETHICONE 80 MG CHEWABLE PO PRN (00:32)
[2016-12-12] MEDS: SENNOSIDES-DOCUSATE SODIUM 1 EACH TAB PO SCH ×2 (00:35→08:31)
--- NOTE | 2016-12-12 08:47 | P.PN ---
Progress Note - Text Patient seen and evaluated. It is noted that last night she spiked temperature of 100.6. She relates that she had been eating times of ice chips so that she can keep her temperature down. We'll repeat CBC and TSH this morning as patient continues to be mildly tachycardic. Grossly she looks much better laying in bed this morning her pain level is much better it seems that the dork was starting to help a little bit better with her pain. However with her temperature at this point we need to rule out other sources for possible infection. On exam her vital signs show mild blood pressure elevation in the 150/80 range as well as mild tachycardia of 117. She had a temperature last night of 100.6 but last temperature was 99. On exam her heart is regular and her lungs are clear. Abdomen is soft uterus is firm. She has significant tenderness periumbilically she relates it to be deep but even with very gentle palpation over that area she jumps. Her incision is otherwise clean dry and intact. We'll order a CAT scan of the abdomen to rule out other possible abnormalities i.e. hematoma versus hemoperitoneum. At this time we'll hold discharge until more information is gathered.
--- NOTE | 2016-12-12 09:33 | CT ---
EXAMINATION TYPE: CT abdomen pelvis wo con DATE OF EXAM: 12/12/2016 COMPARISON: NONE HISTORY: macrosomia. Pain. CT DLP: 1263.70 mGycm Automated exposure control for dose reduction was used. TECHNIQUE: Helical acquisition of images was performed from the lung bases through the pelvis. FINDINGS: Lack of intravenous and oral contrast limits evaluation of the hollow and solid viscera. LUNG BASES: Left basilar atelectasis is seen dependently, subsegmental. LIVER/GB: Unenhanced liver is of normal morphology. Punctate dependent cholelithiasis seen within the gallbladder fundus. PANCREAS: No significant abnormality is seen. SPLEEN: No significant abnormality is seen. Small splenule is seen anterior to the [place] spleen. ADRENALS: No significant abnormality is seen. KIDNEYS: Symmetric unenhanced morphology. ADENOPATHY: None visualized, although evaluation is limited given lack of intravenous no contrast. REPRODUCTIVE ORGANS: The uterus is enlarged measuring 20.1 x 9.0 x 14.2 cm, presumably secondary to p ostpartum state. High density blood products and air are seen within the endometrial cavity. Endometr ial thickness is unable to be obtained on this noncontrast CT. Fat stranding within the subcutaneous soft tissues is thought to relate to recent scar. Left rectus muscle is slightly asymmetric with no distinct high density to indicate hematoma. Diastases recti is noted with abutting small elana l. URINARY BLADDER: No significant abnormality is seen. OSSEOUS STRUCTURES: No significant abnormality is seen. BOWEL: No enlarged bowel loops are identified.. IMPRESSION: ENLARGED AND HETEROGENOUS UTERUS, LIKELY RELATED TO STATE WITH FAT STRANDING AND SUBCUTANE OUS EMPHYSEMA IN THE ANTERIOR ABDOMINAL WALL, ALSO LIKELY RELATED TO RECENT . CORRELATE WITH SURGICAL HISTORY. AIR AND BLOOD PRODUCTS WITHIN THE MYOMETRIUM COULD RELATE TO ENDOMETRITIS OR RETAIN ED PRODUCTS OF CONCEPTION. PELVIC ULTRASOUND IS RECOMMENDED IF THERE IS CLINICAL CONCERN FOR EITHER.
[2016-12-12 10:05] LABS: Basophils % (A) 0 %; CH 30.5; CHCM 32.9; Eosinophils # (A) 0.2 k/uL (0-0.7); Eosinophils % (A) 2 %; HCT 28.1 % (34.0-46.0); HDW 2.29; HGB 8.8 gm/dL (11.4-16.0); Luc # (Auto) 0.26; Luc % (Auto) 3; Lymphocytes # (A) 1.1 k/uL (1.0-4.8); Lymphocytes % (A) 12 %; MCH 29.3 pg (25.0-35.0); MCHC 31.5 g/dL (31.0-37.0); MCV 93.1 fL (80.0-100.0); Monocytes # (A) 0.6 k/uL (0-1.0); Monocytes % (A) 6 %; Neutrophils # (A) 7.3 k/uL (1.3-7.7); Neutrophils % (A) 77 %; RBC 3.02 m/uL (3.80-5.40); RDW 14.8 % (11.5-15.5); WBC 9.4 k/uL (3.8-10.6); WBC (Perox) 9.79
[2016-12-12 11:33] VITALS: TEMP 98
[2016-12-12 11:35] VITALS: BP 138/78; PULSE 115; RESP 20
--- NOTE | 2016-12-12 11:40 | P.DS ---
Providers Date of admission: 12/08/16 10:49 Expected date of discharge: 12/12/16 Attending physician: Poncho Washington Primary care physician: Stated None Hospital Course: Patient seen and evaluated. We did order a CAT scan her abdomen and check thyroid and CBC. Hemoglobin stable at 8.8 with white count 9 and her TSH is also normal. CAT scan showed overall normal postop findings. There is some possibility of endometritis based on CAT scan will plan to discharged patient home with prescription for Keflex for the next 7 days as a precaution however this seems relatively unlikely was normal white blood count and absence of fevers. She is having some feelings of elevation in temperature but this may also be secondary to her breast milk coming in. All questions are answered for her at this time prescription for pain medicine are written. Vital signs are stable and she is afebrile. Her heart is regular her lungs are clear her abdomen is soft bowel sounds are noted. Her incision is clean dry and intact. Uterus is firm she still has some mild to moderate tenderness across her lower abdomen difficult to say for certainty this is normal surgical change but at this time I find no other issues. She is aware to return to the emergency room or call our office for any temperatures above the 101, heavy bleeding, severe pain. Discharge instructions were thoroughly reviewed for the patient all questions are answered for her prior to her discharge. Patient Condition at Discharge: Good Plan - Discharge Summary New Discharge Prescriptions: New HYDROcodone/APAP 5-325MG [[place] 5-325] 1 tab PO Q4HR PRN #30 tab PRN Reason: Pain Ibuprofen [Motrin] 600 mg PO Q6HR PRN #30 tab PRN Reason: Pain No Action Qyr-Sqws-Okmox Acid [-U Capsule (formulary)] 1 cap PO DAILY #30 cap glyBURIDE [Glyburide] 1.25 mg PO DAILY Discharge Medication List Idb-Lebe-Jzlaw Acid [-U Capsule (formulary)] 1 cap PO DAILY # 30 cap 04/28/16 [Rx] glyBURIDE [Glyburide] 1.25 mg PO DAILY 12/08/16 [History] HYDROcodone/APAP 5-325MG [[place] 5-325] 1 tab PO Q4HR PRN #30 tab 12/12/16 [Rx] Ibuprofen [Motrin] 600 mg PO Q6HR PRN #30 tab 12/12/16 [Rx] Follow up Appointment(s)/Referral(s): Poncho Washington DO [Doctor of Osteopathic Medicine] - 1 Week Activity/Diet/Wound Care/Special Instructions: No heavy lifting, limit stairs and driving, and pelvic rest. If any high temperatures, heavy bleeding, or severe pain call the office Discharge Disposition: HOME SELF-CARE
== END 2016-12-12 14:00 | disposition home or self-care (01) | DRG 765 ==
LOC: 4FBP 10:49
PROVIDERS: ADMIT Obstetrics & Gynecology; ATTEND Obstetrics & Gynecology
PROC: 10D00Z1 Extraction of Products of Conception, Low, Open Approach (ICD-10-PCS; principal; 2016-12-08 12:15)
DX: O36.63X0 Maternal care for excessive fetal growth, third trimester, not applicable or unspecified (principal); O99.42 Diseases of the circulatory system complicating childbirth; O99.12 Other diseases of the blood and blood-forming organs and certain disorders involving the immune mechanism complicating childbirth; O26.893 Other specified pregnancy related conditions, third trimester; I99.8 Other disorder of circulatory system; O24.429 Gestational diabetes mellitus in childbirth, unspecified control; D57.3 Sickle-cell trait; F90.9 Attention-deficit hyperactivity disorder, unspecified type; J45.909 Unspecified asthma, uncomplicated; O99.52 Diseases of the respiratory system complicating childbirth; O99.344 Other mental disorders complicating childbirth; Z37.0 Single live birth; Z3A.39 39 weeks gestation of pregnancy; Z91.19 Patient's noncompliance with other medical treatment and regimen; Z88.6 Allergy status to analgesic agent
CPT/HCPCS: 74176; 81003; 83036; 84443; 85025; 86850; 86900; 86901; 88307; 90715

== ENCOUNTER 2017-02-06 17:09 | Emergency (ER) | payer OTHER ==
[2017-02-06 17:16] VITALS: BP 128/93; PULSE 89; RESP 18; TEMP 97.6
--- NOTE | 2017-02-06 17:33 | ED ---
Skin/Abscess/FB HPI - General Chief complaint: Skin/Abscess/Foreign Body Stated complaint: Post Op Leaking Time Seen by Provider: 02/06/17 17:17 Source: patient, RN notes reviewed Mode of arrival: ambulatory Limitations: no limitations - History of Present Illness Initial comments: 27-year-old female presents emergency Department with chief complaint of fluid leaking from her section. Patient states that she has approximately 6 weeks ago. Patient states there was a small amount of clear fluid that these from her site today. Patient states she was at work. Patient has no associated pain. Patient denies any bleeding. Patient states all symptoms are resolved. She did have follow-up after . Patient has been working over the last 3 weeks. Patient said no difficulty with this other than the rib and slightly sensitive to the touch. - Related Data Home Medications Medication Instructions Recorded Confirmed glyBURIDE [Diabeta] 2.5 mg PO DAILY 02/06/17 02/06/17 Allergies Allergy/AdvReac Type Severity Reaction Status Date / Time ibuprofen [From Motrin] Allergy Severe Anaphylaxis Verified 02/06/17 17:23 Review of Systems ROS Statement: Those systems with pertinent positive or pertinent negative responses have been documented in the HPI. ROS Other: All systems not noted in ROS Statement are negative. Past Medical History Past Medical History: Asthma, Diabetes Mellitus Additional Past Medical History / Comment(s): Sickle Cell Anemia trait, gestational diabetes History of Any Multi-Drug Resistant Organisms: None Reported Past Surgical History: Section Additional Past Surgical History / Comment(s): Eye surgery Past Anesthesia/Blood Transfusion Reactions: No Reported Reaction Past Psychological History: ADD/ADHD Smoking Status: Never smoker Past Alcohol Use History: None Reported Past Drug Use History: None Reported - Past Family History Mother Family Medical History: No Reported History General Exam Limitations: no limitations General appearance: alert, in no apparent distress Neck exam: Present: normal inspection. Absent: tenderness, meningismus, lymphadenopathy Respiratory exam: Present: normal lung sounds bilaterally. Absent: respiratory distress, wheezes, rales, rhonchi, stridor Cardiovascular Exam: Present: regular rate, normal rhythm, normal heart sounds. Absent: systolic murmur, diastolic murmur, rubs, gallop, clicks GI/Abdominal exam: Present: soft, normal bowel sounds, other (Well-healed incision with a small area of wound dehiscence on the right side there is no active bleeding there is nontender there is no purulent drainage). Absent: distended, tenderness, guarding, rebound, rigid Skin exam: Present: warm, dry, intact, normal color. Absent: rash Course Vital Signs 02/06/17 17:13 Temperature 97.6 F Pulse Rate 89 Respiratory 18 Rate Blood Pressure 128/93 O2 Sat by Pulse 98 Oximetry Medical Decision Making - Medical Decision Making 27-year-old female presented for issues. Patient most likely had a small seroma that ruptured. Patient has a very small opening along the incision consistent with wound dehiscence. Patient will be discharged return parameters were discussed. Disposition Clinical Impression: Dehiscence of section wound, , Seroma Disposition: HOME SELF-CARE Condition: Stable Instructions: Wound Dehiscence (ED) Additional Instructions: Please return to the Emergency Department if symptoms worsen or any other concerns. Referrals: Ray Ward MD [Primary Care Provider] - 1-2 days Time of Disposition: 17:33
== END 2017-02-06 17:45 | disposition home or self-care (01) ==
LOC: EC 17:09
DX: O90.0 Disruption of cesarean delivery wound (principal); O99.73 Diseases of the skin and subcutaneous tissue complicating the puerperium; L76.33 Postprocedural seroma of skin and subcutaneous tissue following a dermatologic procedure; Z79.84 Long term (current) use of oral hypoglycemic drugs; Z88.6 Allergy status to analgesic agent
CPT/HCPCS: 99283

== ENCOUNTER 2017-08-02 09:55 | Inpatient (IN) | payer OTHER ==
[2017-08-02] MEDS ORDERED: SODIUM CHLORIDE 0.9% 1,000 ML IV STA (11:19)
[2017-08-02] MEDS ORDERED: ACETAMINOPHEN TAB 325 MG TAB PO STA (11:42)
[2017-08-02] MEDS ORDERED: ONDANSETRON 4 MG/2 ML VIAL IVP STA (11:42)
[2017-08-02] MEDS ORDERED: MORPHINE SULFATE 4MG/4ML SYRG IVP ONE (11:42)
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
[2017-08-02 12:24] LABS: Basophils # (A) 0.1 k/uL (0-0.2); Basophils % (A) 0 %; Eosinophils # (A) 0.3 k/uL (0-0.7); Eosinophils % (A) 1 %; HCT 36.1 % (34.0-46.0); HGB 12.2 gm/dL (11.4-16.0); Lymphocytes # (A) 2.5 k/uL (1.0-4.8); Lymphocytes % (A) 9 %; MCH 27.2 pg (25.0-35.0); MCHC 33.7 g/dL (31.0-37.0); MCV 80.8 fL (80.0-100.0); Mean Platelet Volume 6.5; Monocytes # (A) 1.8 k/uL (0-1.0); Monocytes % (A) 7 %; Neutrophils # (A) 21.6 k/uL (1.3-7.7); Neutrophils % (A) 81 %; Platelet Count 432 k/uL (150-450); RBC 4.47 m/uL (3.80-5.40); RDW 13.8 % (11.5-15.5)
[2017-08-02 12:34] LABS: ALT 79 U/L (9-52); AST 37 U/L (14-36); Albumin 4.3 g/dL (3.5-5.0); Alkaline Phosphatase 107 U/L (38-126); Anion Gap 13 mmol/L; Blood Urea Nitrogen 8 mg/dL (7-17); Calcium 10.3 mg/dL (8.4-10.2); Carbon Dioxide 24 mmol/L (22-30); Chloride 99 mmol/L (98-107); Glucose 112 mg/dL (74-99); Potassium 4.2 mmol/L (3.5-5.1); Sodium 136 mmol/L (137-145); Total Bilirubin 0.5 mg/dL (0.2-1.3); Total Protein 7.7 g/dL (6.3-8.2)
[2017-08-02 12:37] LABS: WBC 26.5 k/uL (3.8-10.6)
[2017-08-02 12:42] LABS: Appearance,Urine Cloudy (Clear); Bacteria,Urine Many /hpf; Bilirubin,Urine Negative (Negative); Blood,Urine Moderate (Negative); Color,Urine Yellow; Glucose,Urine (UA) Negative (Negative); Ketones,Urine Negative (Negative); Leukocyte Esterase,Urine Large (Negative); Mucus,Urine Rare /hpf; Nitrite,Urine Negative (Negative); PH, Urine 5.5 (5.0-8.0); Protein,Urine 1+ (Negative); RBC,Urine 21 /hpf (0-5); Squamous Epithelial Cell,Urine 2 /hpf (0-4); Urobilinogen,Urine <2.0 mg/dL (<2.0); WBC,Urine >182 /hpf (0-5)
[2017-08-02] MEDS ORDERED: cefTRIAXone IN SWFI 1,000 MG/10 ML SYRINGE IVP STA (12:46)
[2017-08-02] MEDS ORDERED: ONDANSETRON 4 MG/2 ML VIAL IVP PRN (13:19)
[2017-08-02] MEDS: SODIUM CHLORIDE 0.9% 1,000 ML IV SCH (15:59)
[2017-08-02] MEDS: ACETAMINOPHEN TAB 325 MG TAB PO PRN (17:52)
[2017-08-02] MEDS: cefTRIAXone IN SWFI 1,000 MG/10 ML SYRINGE IVP SCH (20:41)
[2017-08-02] MEDS: HYDROcodone/APAP 5-325MG 1 EACH TAB PO PRN (20:41)
[2017-08-02] MEDS ORDERED: TEMAZEPAM 15 MG CAP PO PRN (22:24)
[2017-08-03] MEDS: HEPARIN SODIUM,PORCINE 5,000 UNIT/ML 1 ML VIAL SQ SCH ×3 (01:29→21:34)
[2017-08-03] MEDS: HYDROcodone/APAP 5-325MG 1 EACH TAB PO PRN ×3 (01:51→11:48)
[2017-08-03] MEDS: SODIUM CHLORIDE 0.9% 1,000 ML IV SCH ×3 (01:52→17:56)
[2017-08-03] MEDS: cefTRIAXone IN SWFI 1,000 MG/10 ML SYRINGE IVP SCH (07:47)
[2017-08-03 09:17] LABS: Basophils # (A) 0.1 k/uL (0-0.2); Basophils % (A) 0 %; Eosinophils # (A) 0.3 k/uL (0-0.7); Eosinophils % (A) 1 %; HCT 32.9 % (34.0-46.0); HGB 11.1 gm/dL (11.4-16.0); Lymphocytes # (A) 2.2 k/uL (1.0-4.8); Lymphocytes % (A) 8 %; MCH 27.6 pg (25.0-35.0); MCHC 33.6 g/dL (31.0-37.0); MCV 82.2 fL (80.0-100.0); Mean Platelet Volume 7.9; Monocytes # (A) 2.2 k/uL (0-1.0); Monocytes % (A) 8 %; Neutrophils % (A) 82 %; Platelet Count 356 k/uL (150-450); RDW 13.8 % (11.5-15.5)
[2017-08-03 09:18] LABS: WBC 28.2 k/uL (3.8-10.6)
[2017-08-03 10:22] LABS: Anion Gap 13 mmol/L; Blood Urea Nitrogen 9 mg/dL (7-17); Calcium 9.6 mg/dL (8.4-10.2); Carbon Dioxide 23 mmol/L (22-30); Chloride 105 mmol/L (98-107); Glucose 81 mg/dL (74-99); Sodium 141 mmol/L (137-145)
--- NOTE | 2017-08-03 12:08 | HP ---
HISTORY AND PHYSICAL CHIEF COMPLAINT: Fever and abdominal pain. HISTORY OF PRESENT ILLNESS: This 27-year-old woman with a past medical history of multiple medical problems including history of asthma, diabetes, sickle cell anemia trait, pyelonephritis, ADHD being followed by Sylvia in the outpatient setting was complaining of recurrent urinary tract infections. Currently the patient is complaining of fever, rigors, chills and some dysuria and left flank pain and the patient came to [facility]. The patient's white count was only elevated to 26.5. Patient had features of UTI. Patient admitted for evaluation and treatment. There is no history of any rigors, chills, headache, loss of consciousness, seizures, fever was noted. PAST MEDICAL HISTORY: History of pyelonephritis, asthma, diabetes, sickle cell trait. MEDICATIONS PRIOR TO ADMISSION: None. ALLERGIES: IBUPROFEN. FAMILY HISTORY: No history of heart disease in the family and obesity. SOCIAL HISTORY: No history of smoking. No history of alcohol intake. REVIEW OF SYSTEMS: ENT: No diminished hearing. No diminished vision. CARDIOVASCULAR SYSTEM: No angina, palpitations. RESPIRATORY SYSTEM: As mentioned earlier. GI: An mentioned earlier. : As mentioned earlier. NERVOUS SYSTEM: No numbness, weakness. ALLERGY/IMMUNOLOGY: None. MUSCULOSKELETAL: As mentioned earlier. HEMATOLOGY/ONCOLOGY: No history of anemia. ENDOCRINE: No history of diabetes, hypothyroidism. CONSTITUTIONAL: As mentioned earlier. DERMATOLOGY: Negative. RHEUMATOLOGY: Negative. PSYCHIATRY: As mentioned earlier. PHYSICAL EXAM: The patient is alert and oriented x3. The pulse is 110, blood pressure 125/60, respiration 18 temperature 100.1, pulse ox 100% on room air. HEENT: Conjunctivae normal. Oral mucosa moist. Neck is no jugular venous distention. No carotid bruit. No lymph node enlargement. CARDIOVASCULAR SYSTEM: S1, S2. RESPIRATORY: Diminished breath sounds at the bases. No rhonchi. No crackles. ABDOMEN: Soft, mild diffuse tenderness in the right side of the abdomen and right flank also present. No mass palpable. LEGS: No edema, no swelling. NERVOUS SYSTEM: As mentioned earlier, moves all 4 limbs. No focal motor or sensory deficit. LYMPHATICS: No lymph node palpable in neck, axillae or groin. SKIN: No rash, bleeding. LABS: WBC 26.5, hemoglobin 12.2. Sodium 136, calcium 10.3, AST 37, ALT 79. ASSESSMENT: 1. Acute urinary tract infection with right pyelonephritis with possible sepsis. 2. Increased AST and ALT. 3. Increased calcium. 4. Increased white blood cell count. 5. Obesity with body mass of 14.8. 6. History of asthma. 7. History of diabetes type 2. 8. History of sickle cell anemia trait. 9. History of pyelonephritis, recurrent urinary tract infections. 10.History ADD/ADHD. RECOMMENDATIONS AND DISCUSSION: In this 27-year-old woman who presented with multiple complex medical issues, we will monitor the patient closely. Continue the current medical management and continue symptomatic treatment. We will initiate broad-spectrum IV antibiotics, symptomatic treatment. IV fluids. Follow the cultures. We will also obtain Infectious Disease evaluation. DVT prophylaxis. Otherwise, prognosis guarded because of multiple complex medical issues and further recommendations to follow. Symptomatic treatment for the pain also will be considered. MMODL / IJN: [id number] /
[2017-08-03] MEDS ORDERED: BUTALB/APAP/CAFF 50-325-40MG TAB PO STA (12:24)
[2017-08-03] MEDS ORDERED: MORPHINE ORAL SOLN 10 MG/5 ML CUP PO PRN (12:25)
[2017-08-03 13:55] LABS: Amphetamine Screen,Urine Not Detected (NotDetected); Cocaine Screen,Urine Not Detected (NotDetected); Opiate Screen,Urine Detected (NotDetected); Phencyclidine Screen,Urine Not Detected (NotDetected); Urn Cannabinoid Scrn Not Detected (NotDetected)
[2017-08-03 13:56] LABS: Barbiturate Screen,Urine Not Detected (NotDetected); Benzodiazepines Screen,Urine Not Detected (NotDetected); Methadone Screen, Urine Not Detected (NotDetected); Oxycodone Screen, Urine Not Detected (NotDetected); Tricyclic Antidepressant,Urine Not Detected (NotDetected)
--- NOTE | 2017-08-03 13:56 | PN ---
PROGRESS NOTE DATE OF SERVICE: 08/03/2017 This 27-year-old woman was admitted with acute UTI, also had right pyelonephritis and possible sepsis. The patient also complained of neck pain also. No chest pain. No palpitations. No fever. PHYSICAL EXAM: Alert and oriented x3. Pulse 93, blood pressure 117/77, respiration 17, temperature 99.4, pulse ox 100% on room air. HEENT: Conjunctivae normal. Oral mucosa moist. NECK: No jugular venous distention. No carotid bruit. No lymph node enlargement. CARDIOVASCULAR: S1, S2. No S3, no S4. RESPIRATORY: Breath sounds diminished in the bases. No rhonchi, no crackles. ABDOMEN: Soft, mild diffuse tenderness present. LEGS: No edema. NERVOUS SYSTEM: No focal deficits. LABS: WBC 20.8, hemoglobin 11.1. UA noted. The cultures are negative so far. ASSESSMENT: 1. Acute urinary tract infection with right pyelonephritis with possible sepsis. 2. Increased AST, ALT. 3. Increased calcium. 4. Increased WBC. 5. Neck pain for evaluation. 6. Obesity with body mass index of for 40.8. 7. History of asthma. 8. History of diabetes type 2. 9. History of sickle cell trait. 10.History of pyelonephritis and recurrent urinary tract infections. 11.History attention deficit disorder, attention deficit hyperactivity disorder. RECOMMENDATIONS AND DISCUSSION I recommend to continue current management and symptomatic treatment. Otherwise at this time I recommend broad-spectrum IV antibiotics, cultures. I would also recommend repeat CT scan of the abdomen and neck also. We will repeat the blood cultures. Further recommendations to follow. MMODL / IJN: [id number] /
[2017-08-03] MEDS: IOPAMIDOL-300 CONTRAST 30 ML VIAL (ORAL USE) PO PRN ×2 (14:11→15:08)
--- NOTE | 2017-08-03 15:58 | CT ---
EXAMINATION TYPE: CT abdomen pelvis wo con DATE OF EXAM: 08/03/2017 COMPARISON: NONE HISTORY: pyelo rt, sepsis. kidney infection CT DLP: 1051 mGycm Examination of the solid and hollow viscera is limited given the lack of contrast. FINDINGS: LUNG BASES: No evidence for nodule. No evidence for infiltrate. Strandy basilar atelectasis noted. LIVER/GB: The gallbladder is unremarkable. No space-occupying hepatic lesion. PANCREAS: No pancreatic mass identified. No inflammatory process seen. SPLEEN: No evidence for splenomegaly. No intrasplenic lesions seen. ADRENALS: No adrenal nodules identified. No evidence for thickening. KIDNEYS: Examination is limited with regards to exclusion of pyelonephritis given the lack of contras t however other appears to be increased edema of the right kidney relative to its left-sided counterp art and this may reflect underlying pyelonephritis. No evidence for renal mass. No nephrolithiasis. N o hydronephrosis. BOWEL: Appendix has a normal appearance. No evidence of bowel obstruction. No inflammatory process. Lymph nodes: No evidence for adenopathy greater than 1 cm. Abdominal aorta: Atheromatous changes seen. No evidence for aneurysm. Genital organs: No significant abnormality. Small amount of free fluid is seen within the cul-de-sac. Other: No significant abnormality. IMPRESSION: 1.Examination is limited with regards to exclusion of pyelonephritis given the lack of contrast howev er other appears to be increased edema of the right kidney relative to its left-sided counterpart and this may reflect underlying pyelonephritis.
[2017-08-03] MEDS ORDERED: BUTALB/APAP/CAFF 50-325-40MG TAB PO PRN (16:00)
--- NOTE | 2017-08-03 16:11 | CT ---
EXAMINATION TYPE: CT brain wo con DATE OF EXAM: 08/03/2017 COMPARISON: 08/27/2010 HISTORY: Posterior head and neck pain when laying down. CT DLP: [address] of the brain was performed. The ventricles, basal cisterns and sulci overlying the cerebral convexities demonstrate a normal appe arance. There is no evidence for intracranial hemorrhage or sulcal effacement. No mass effects are seen. Osseous calvarium is intact. If symptoms persist consider MRI as clinically warranted. IMPRESSION: 1. No acute intracranial process is seen at this time.
--- NOTE | 2017-08-03 16:15 | CT ---
EXAMINATION TYPE: CT soft tissue neck wo con DATE OF EXAM: 08/03/2017 COMPARISON: NONE HISTORY: Posterior head and neck pain when laying down. CT DLP: [address] of the neck was performed from the skull base through the lung apices. AIRWAY: The supraglottic, glottic, and subglottic portions of the airway appear patent and free of mass. SALIVARY GLANDS: The submandibular and parotid glands are free of mass or inflammatory process. THYROID GLAND: No nodules or masses seen. LYMPH NODES: No adenopathy seen greater than 1cm. LUNG APICES: No nodule or mass is seen. OTHER: Vascular structures are patent. No significant degenerative change of the cervical spine. N o abscess seen. IMPRESSION: No significant abnormality is present.
--- NOTE | 2017-08-03 16:44 | CONS ---
CONSULTATION DATE OF SERVICE: 08/03/2017. REASON FOR CONSULTATION: Pyelonephritis. HISTORY OF PRESENT ILLNESS: The patient is a 27-year-old female, morbidly obese, presenting to the ER at [facility] yesterday with chief complaints of fever. Apparently her symptoms have been going on for few days prior to presentation to hospital. The patient said she also is having symptoms of dysuria but she attributed that to the feminine spray that she has been using. She did have slight frequency of the urine. No suprapubic pain, but some pain in the right flank area, more of a dull aching pain 3 to 4/10, and no radiation. The patient also complaining of generalized body aches and started having a fever of 101 degrees Fahrenheit with concern for possible infection. She presented to the ER as the patient did have previous history of pyelonephritis about 4-5 years ago. The patient subsequently was evaluated by the ER physician. The patient did on arrival to the ER did have a fever of 103 degrees Fahrenheit. She did have elevated white count 26.5 with repeat today 28.2. Electrolytes have been normal. Urine was positive with large leukocyte esterase with more than 1-2 WBC with many bacteria. Urine for HCG has been negative. Urine drug screen was positive for opiates. Influenza serology was negative. The patient has been treated with Rocephin. Infectious Disease was consulted for further recommendation regarding antibiotic therapy. REVIEW OF SYSTEMS: CONSTITUTIONAL: Positive for weakness along with fever. EYES: No complaint. ENT: No complaint. RESPIRATORY: No complaint. CARDIOVASCULAR: No complaint. GENITOURINARY: As per HPI. GASTROINTESTINAL: As per HPI. MUSCULOSKELETAL: As per HPI. INTEGUMENTARY: no complaint. PSYCHOLOGICAL: No complaint. ENDOCRINE: No complaint. NEUROLOGIC: No complaint. PAST MEDICAL HISTORY: Significant for asthma, diabetes mellitus, sickle cell trait, history of pyelonephritis, ADHD. PAST SURGICAL HISTORY: . SOCIAL HISTORY: Denies smoking, drinking or drug use. FAMILY HISTORY: No pertinent findings noticed. ALLERGIES: To IBUPROFEN. MEDICATION: Medications include the patient is currently on Tylenol, Fioricet, [place], Rocephin 1 g daily, heparin, morphine sulfate, Zofran, and Restoril. EXAMINATION: Blood pressure is 117/77 with a pulse of 93, temperature 99.4, T-max 103. She is 100% on room air. General description is a middle aged female up in the bed in no distress. No tachypnea or accessory muscle of respiration use. HEENT: Shows slight pallor. No scleral icterus. Oral mucous membranes dry. No pharyngeal erythema or thrush. NECK: Trachea central. No thyromegaly. LUNGS: Unlabored breathing. Clear to auscultation anteriorly. No wheeze or crackle. HEART: S1, S2. Regular rate and rhythm. ABDOMEN: Soft, minimally tender in the right flank and upper quadrant area. No guarding or rigidity. No organomegaly. EXTREMITIES: No edema of the feet. SKIN EXAMINATION: No rash or mass palpable. NEUROLOGICAL: Patient is awake, alert, oriented. No signs of meningeal irritation. LABS: Hemoglobin 11.1, white count 28.2 with a BUN of 9, creatinine 0.55. Electrolytes have been normal. Liver enzymes are normal. Lactic acid is 1.2. Urine has been positive. Urine HCG negative. Urine drug screen positive for opiates. DIAGNOSTIC IMPRESSION AND PLAN: Patient admitted to the hospital with sepsis in a patient who did have a fever of 103 degrees Fahrenheit. The patient was tachycardic with heart rate to 127 [place] [address] that is up to 28,000 today meeting criteria for SIRS. Source is likely right-sided pyelonephritis. The patient's symptom have been going on for more than a week with concern for possible deep infection and risk of bacteremia likely from enteric gram-negative pathogen. PLAN: 1. We will increase Rocephin to 2 g IV piggyback daily. 2. Await the CT of the abdomen, pelvis that has been ordered to make sure no evidence of any obstructive uropathy or any abscess complication associated with pyelonephritis. 3. Depending upon clinical response as well as cultures, will adjust her medications further if needed. Thank you for this consultation. Will follow this patient along with you. MMODL / IJN: [id number] /
[2017-08-03] MEDS: ACETAMINOPHEN TAB 325 MG TAB PO PRN ×2 (17:54→23:46)
[2017-08-03] MEDS: HYDROmorphone 2 MG TAB PO PRN ×2 (18:44→23:07)
[2017-08-03] MEDS: cefTRIAXone IN SWFI 2,000 MG/20 ML SYRINGE IVP SCH (21:34)
[2017-08-04] MEDS: HYDROmorphone 2 MG TAB PO PRN ×5 (03:17→21:00)
[2017-08-04] MEDS: SODIUM CHLORIDE 0.9% 1,000 ML IV SCH ×2 (06:32→18:53)
[2017-08-04] MEDS: ACETAMINOPHEN TAB 325 MG TAB PO PRN ×2 (06:32→16:23)
[2017-08-04 07:16] LABS: Basophils # (A) 0.1 k/uL (0-0.2); Basophils % (A) 0 %; Eosinophils # (A) 0.4 k/uL (0-0.7); Eosinophils % (A) 3 %; HCT 30.3 % (34.0-46.0); HGB 10.1 gm/dL (11.4-16.0); Lymphocytes # (A) 2.1 k/uL (1.0-4.8); Lymphocytes % (A) 13 %; MCHC 33.4 g/dL (31.0-37.0); MCV 83.8 fL (80.0-100.0); Mean Platelet Volume 6.7; Monocytes % (A) 6 %; Neutrophils # (A) 12.2 k/uL (1.3-7.7); Neutrophils % (A) 75 %; Platelet Count 366 k/uL (150-450); RBC 3.62 m/uL (3.80-5.40); RDW 13.5 % (11.5-15.5); WBC 16.3 k/uL (3.8-10.6)
[2017-08-04 07:28] LABS: Anion Gap 11 mmol/L; Blood Urea Nitrogen 10 mg/dL (7-17); Calcium 9.3 mg/dL (8.4-10.2); Carbon Dioxide 25 mmol/L (22-30); Chloride 103 mmol/L (98-107); Glucose 120 mg/dL (74-99); Potassium 4.3 mmol/L (3.5-5.1); Sodium 139 mmol/L (137-145)
[2017-08-04] MEDS: HEPARIN SODIUM,PORCINE 5,000 UNIT/ML 1 ML VIAL SQ SCH ×2 (09:07→21:02)
[2017-08-04] MEDS: cefTRIAXone IN SWFI 2,000 MG/20 ML SYRINGE IVP SCH ×2 (09:07→21:02)
--- NOTE | 2017-08-04 14:29 | CT ---
EXAMINATION TYPE: CT cervical spine wo con DATE OF EXAM: 08/04/2017 COMPARISON: CT neck from yesterday HISTORY: Neck pain no injury per patient. Occipital neuralgia and cervicalgia per order. CT DLP: 651.5 mGycm. Automated Exposure Control for Dose Reduction was Utilized. TECHNIQUE: CT scan of the cervical spine is obtained without contrast, axial images are obtained, sa gittal and coronal reformatted images are also reviewed. FINDINGS: Cervical spine is visualized in its entirety from C1 through upper thoracic levels, demonst rates straightened alignment without evidence of acute fracture or dislocation. Prevertebral soft ti ssue appears within normal limits. The C1-C2 articulation is within normal limits on the coronal nanette ges. Vertebral body heights and disc space heights are maintained. Spinal canal is grossly preserved on sagittal images. There is artifact degradation lower levels due to patient's large body habitus. Review of axial images shows no large disc herniation or spinal canal stenosis, bilateral neural fora giovani are grossly patent at all cervical levels. Thyroid gland is felt within normal limits. Visualize d lung apices are clear. IMPRESSION: Suboptimal study due to patient's body habitus. Straightening of cervical spine otherwise unremarkable study.
--- NOTE | 2017-08-04 16:57 | PN ---
PROGRESS NOTE DATE OF SERVICE: 08/04/2017 This 27-year-old woman who was admitted with UTI infection, right pyelonephritis and possible sepsis is being closely monitored at this time. The patient also had spinal CTs. Otherwise, abdomen and pelvis CT scan was noted. The urine culture showed Gram- negative bacilli. No chest pain. No palpitations. No fever. White count is slightly improved. On exam, alert and oriented x3. Pulse 88, blood pressure 125/80, respiration 19, temperature 98.7, pulse ox 94% on room air. HEENT: Conjunctivae normal. NECK: No jugular venous distention. CARDIOVASCULAR SYSTEM: S1, S2 muffled. RESPIRATORY SYSTEM: Breath sounds diminished at the bases. No rhonchi. No crackles. ABDOMEN: Soft. Mild diffuse discomfort on palpation in the renal angle. NERVOUS SYSTEM: No focal deficit. LEGS: No edema. No swelling. LABS: WBC 16.3, hemoglobin 10.1. Other labs are noted. ASSESSMENT: 1. Acute urinary tract infection with right pyelonephritis with possible sepsis with Gram-negative bacilli. 2. Increased AST ALT. 3. Increased calcium. 4. Neck pain, possibly musculoskeletal. 5. Increased white count. 6. Obesity with body mass index of 40.8. 7. History of asthma. RECOMMENDATIONS AND DISCUSSION: I recommend to continue current medication, continue symptomatic treatment. Continue with the broad-spectrum IV antibiotics. Follow the cultures. Guarded prognosis. Further recommendations to follow. MMODL / IJN: [id number] /
--- NOTE | 2017-08-04 19:38 | CT ---
EXAMINATION TYPE: CT lumbar spine wo con DATE OF EXAM: 08/04/2017 2:19 PM COMPARISON: CT abdomen and pelvis from yesterday HISTORY: Back pain, not feeling well CT DLP: 2670.1 mGycm Automated exposure control for dose reduction was used. Unenhanced CT of the lumbar spine was performed. Bone and soft tissue window settings are submitted as well as coronal and sagittal reconstructions. 5 lumbar-type vertebra are redemonstrated. Lumbar spine shows satisfactory alignment without evidence of acute fracture or dislocation. Vertebral body heights and disc space heights are maintained. Spin al canal is preserved. No suspicious posterior disc herniations are seen. No significant spurring is seen. Review of axial images shows no significant degenerative change at any lumbar level. There is contras t-filled normal-appearing appendix seen in the right lower quadrant. Residual oral contrast is seen i n visualized colon of the abdomen and pelvis. IMPRESSION: Unremarkable study.
--- NOTE | 2017-08-04 22:37 | P.CNNES ---
History of Present Illness Consult date: 08/04/17 Requesting physician: Hansa Beckman Reason for Consult: Headache, Neck Pain Chief complaint: Posterior Head Pain & Neck Pain History of Present Illness: Neurology consulting a 27-year-old female with multiple complex medical issues. Patient has a following medical problems: Asthma, diabetes, sickle cell anemia trait, pyelonephritis, ADHD. Patient is being followed by primary care provider in the outpatient setting and began complaining of recurrent urinary tract infection. Patient was also complaining of fever, rigors, chills and some dysuria and left flank pain the patient came to the emergency room. Patient's white count on initial presentation was 26.5. Although it is lower now it is still significantly elevated. Patient was admitted for further evaluation. Patient does not have a prior history of any headache, head or neck trauma or any other previous injury to the head or neck. Patient has complaints currently of bilateral posterior head pain as well as bilateral low back pain. Patient had reproducible pain directly over the greater occipital nerves bilaterally in the cervical region and left and right flank bilaterally in the low back had reproducible pain as well. Patient was given previous standing order of Dilaudid which did decrease the patient's pain to a tolerable level, by supervising physician via phone order. Patient states that she is allergic to nonsteroidal anti-inflammatories or has "difficulty with Motrin and other NSAIDs." Patient has previously failed Fioricet as well since admission. CT brain is artery been conducted and is negative/unremarkable. On contact, the patient was ambulating in the room in no acute distress with visitors present. Patient is alert and oriented 3. Review of Systems systems not noted in HPI or negative Past Medical History Past Medical History: Asthma, Diabetes Mellitus Additional Past Medical History / Comment(s): Sickle Cell Anemia trait, pyelonephritis 4-5 yrs ago, gestational diabetes History of Any Multi-Drug Resistant Organisms: None Reported Past Surgical History: Section Additional Past Surgical History / Comment(s): Eye surgery for strabismus bilaterally. Past Anesthesia/Blood Transfusion Reactions: No Reported Reaction Smoking Status: Never smoker - Past Family History Mother Family Medical History: No Reported History Additional Family Medical History / Comment(s): Obesity Father History Unknown: Yes Medications and Allergies Home Medications Medication Instructions Recorded Confirmed Type No Known Home Medications [No 08/02/17 08/03/17 History Known Home Medications] Allergies Allergy/AdvReac Type Severity Reaction Status Date / Time ibuprofen [From Motrin] Allergy Severe Anaphylaxis Verified 08/03/17 11:52 Physical Examination - Vital Signs Vital Signs: Vital Signs Temp Pulse Resp BP Pulse Ox 08/04/17 15:00 100.5 F H 101 H 20 114/68 100 08/04/17 11:05 98.7 F 88 19 125/80 95 08/04/17 08:16 98.2 F 84 18 114/72 96 08/04/17 04:05 99.8 F H 93 16 131/72 96 08/04/17 02:10 99.5 F 08/04/17 01:05 100.6 F H 08/04/17 00:30 100.8 F H 102 H 16 113/67 99 Intake and Output 08/04/17 08/04/17 08/04/17 06:59 14:59 22:59 Other: Voiding Method Toilet # Voids 1 3 General appearance: Alert & oriented x3, no apparent distress. Head: Atraumatic, normocephalic, normal inspection Eyes: Well appearance, PERRLA, EOMI. Absent scleral icterus, conjunctival injection, nystagmus, periorbital swelling. Ear, nose and throat: Normal exam, mucous membranes moist Neck: Normal inspection, tenderness right greater than left cervical region with cervical muscle stiffnessmyalgi Respiratory: No increased work of breathing Cardiovascular: Regular rate, rhythm GI/abdominal: Normal bowel sounds, nondistended, no tenderness, no guarding, no rebound, no rigidity. Extremities: full range of motion Neurological: cranial nerves II through XII intact no lateralizing weakness no seizure activity noted on physical exam no pronator drift and no nystagmus. drink in all 4 extremities is symmetrical and equal at 5 out of 5 Sensation: equal in all 4 extremities to light touch positive tenderness to occipital nerve bilaterally on palpation Positive CVA tenderness over the right and left flanks which also increases patient's complaint of low back pain. Psychological: Mood and affect appropriate for setting. Results - Laboratory Findings CBC and BMP: 08/04/17 06:56 08/04/17 06:56 Abnormal Lab Findings: Abnormal Labs 08/02/17 08/02/17 08/02/17 12:00 12:00 12:00 WBC 26.5 H* RBC Hgb Hct Neutrophils # 21.6 H Monocytes # 1.8 H ESR Sodium 136 L Glucose 112 H Calcium 10.3 H AST 37 H ALT 79 H C-Reactive Protein Urine Appearance Cloudy H Urine Protein 1+ H Urine Blood Moderate H Ur Leukocyte Esterase Large H Urine RBC 21 H Urine WBC >182 H Urine WBC Clumps Few H Urine Bacteria Many H Urine Mucus Rare H Urine Opiates Screen 08/03/17 08/03/17 08/03/17 07:30 13:35 14:34 WBC 28.2 H* RBC Hgb 11.1 L Hct 32.9 L Neutrophils # 23.0 H Monocytes # 2.2 H ESR 53 H Sodium Glucose Calcium AST ALT C-Reactive Protein Urine Appearance Urine Protein Urine Blood Ur Leukocyte Esterase Urine RBC Urine WBC Urine WBC Clumps Urine Bacteria Urine Mucus Urine Opiates Screen Detected H 08/03/17 08/04/17 08/04/17 14:34 06:56 06:56 WBC 16.3 H RBC 3.62 L Hgb 10.1 L Hct 30.3 L Neutrophils # 12.2 H Monocytes # ESR Sodium Glucose 120 H Calcium AST ALT C-Reactive Protein 228.3 H Urine Appearance Urine Protein Urine Blood Ur Leukocyte Esterase Urine RBC Urine WBC Urine WBC Clumps Urine Bacteria Urine Mucus Urine Opiates Screen Assessment and Plan (1) Cervicalgia Current Visit: Yes Status: Acute Code(s): M54.2 - CERVICALGIA SNOMED Code( s): 97794922 (2) Lumbago Current Visit: Yes Status: Acute Code(s): M54.5 - LOW BACK PAIN SNOMED Code(s): 279912762 (3) Pyelonephritis Current Visit: Yes Status: Acute Code(s): N12 - TUBULO-INTERSTITIAL NEPHRITIS, NOT SPCF ACUTE OR CHRONIC SNOMED Code(s): 31738060 (4) Occipital neuritis Current Visit: Yes Status: Acute Code(s): M54.81 - OCCIPITAL NEURALGIA SNOMED Code(s): 84794947 Plan: 1. Occipital neuritis/head pain patient has tenderness to touch or palpation of the greater occipital nerve bilaterally, Which exacerbates patient's bilateral head pain. Patient also has mild cervical paraspinal stiffness right greater than left. Patient is negative for any symptoms for his exam findings consistent with cervical radiculopathy or facet etiology at this time. Patient's complaints are largely myofascial. Given the patient's significant pyelonephritis, patient does appear to have diffuse myalgia throughout the cervical thoracic and lumbar regions. orders as follows: Discourage Dilaudid use and only provide Dilaudid in extreme pain IV Solu-Medrol 250 mg every 8 hours IV for the next 24 hours Zofran 4 mg, continue pre-existing order when necessary Bedside glucose checks per protocol 2. Cervicalgia see #[address] cervical spine has been ordered for identification of any underlying etiology , rule out cervicogenic component to patient's had pain/greater occipital pain 3. Lumbago patient's low thoracic and lumbar pain is consistent with myofascial pain. Patient also states that pain increases/costophrenic angle tenderness with palpation on physical exam. CT lumbar spine will be ordered to rule out any other underlying etiology related to the patient's low back pain. Pain is consistent with patient's known pyelonephritis based on physical exam 4. pyelonephritis: continue to treat underlying etiology per plan of care.
[2017-08-05] MEDS: HYDROmorphone 2 MG TAB PO PRN ×6 (00:58→21:25)
[2017-08-05 06:05] LABS: Glucose,Whole Blood 201 mg/dL (75-99)
[2017-08-05] MEDS: INSULIN ASPART 100 UNIT/ML 1 ML 10 ML VIAL SQ SCH ×4 (06:26→21:19)
[2017-08-05] MEDS: SODIUM CHLORIDE 0.9% 1,000 ML IV SCH ×2 (06:27→23:28)
[2017-08-05 07:04] LABS: Basophils % (A) 0 %; Eosinophils # (A) 0.1 k/uL (0-0.7); Eosinophils % (A) 1 %; HCT 35.4 % (34.0-46.0); HGB 11.4 gm/dL (11.4-16.0); Lymphocytes # (A) 1.1 k/uL (1.0-4.8); Lymphocytes % (A) 8 %; MCH 27.3 pg (25.0-35.0); MCHC 32.3 g/dL (31.0-37.0); MCV 84.5 fL (80.0-100.0); Mean Platelet Volume 6.8; Monocytes # (A) 0.3 k/uL (0-1.0); Monocytes % (A) 2 %; Neutrophils # (A) 11.4 k/uL (1.3-7.7); Neutrophils % (A) 87 %; Platelet Count 444 k/uL (150-450); RBC 4.19 m/uL (3.80-5.40); RDW 13.4 % (11.5-15.5); WBC 13.1 k/uL (3.8-10.6)
[2017-08-05 07:35] LABS: Anion Gap 15 mmol/L; Blood Urea Nitrogen 11 mg/dL (7-17); Calcium 9.9 mg/dL (8.4-10.2); Carbon Dioxide 23 mmol/L (22-30); Chloride 101 mmol/L (98-107); Glucose 210 mg/dL (74-99); Potassium 4.7 mmol/L (3.5-5.1); Sodium 139 mmol/L (137-145)
[2017-08-05] MEDS: HEPARIN SODIUM,PORCINE 5,000 UNIT/ML 1 ML VIAL SQ SCH ×2 (09:31→21:18)
[2017-08-05] MEDS: cefTRIAXone IN SWFI 2,000 MG/20 ML SYRINGE IVP SCH ×2 (09:31→21:19)
[2017-08-05 12:02] LABS: Glucose,Whole Blood 219 mg/dL (75-99)
--- NOTE | 2017-08-05 15:29 | P.PN ---
Subjective Progress Note Date: 08/05/17 Principal diagnosis: headache, neck pain Neurology is following on a 27-year-old female with multiple complex medical issues. Patient has history of asthma, diabetes, sickle cell anemia trait, pyelonephritis, ADHD. Patient is also being followed and primary care provider in the outpatient setting and began complaining of recurrent urinary tract infection previous to presentation at . She did complain of the time of fever , rigors, chills and some dysuria and left flank pain patient's white count was noted to be elevated and is still elevated but improving. Patient does have left low back pain bilaterally as well as cervical pain and increased occipital tenderness bilaterally. Patient had CT of the lumbar spine and cervical spine ordered after initial consultation yesterday. CT lumbar and CT cervical spine were unremarkable per radiology. It was noted yesterday the patient's pain was largely myofascial as well as located over the costovertebral angles consistent with costovertebral tenderness related to the patient's pyelonephritis. patient did have IV Solu-Medrol 250 mg IV piggyback every 6 hours, blood glucose monitoring and sliding scale insulin implemented after consultation yesterday. Patient also had Zofran ordered as well. Today, the patient was seated at the bedside, resting in no acute distress. Patient was alert and oriented 3. patient states that the IV Solu-Medrol is decreasing her head pain as well as decreasing her myofascial pain in the cervical and lumbar areas. Patient is using Dilaudid on a regular basis which makes steroid effectiveness and reassessment difficult. Nursing has been attempting to discourage the patient's use of Dilaudid. Objective - Vital Signs Vital signs: Vital Signs Temp 98.4 F 08/05/17 11:26 Pulse 72 08/05/17 11:26 Resp 16 08/05/17 11:26 BP 121/75 08/05/17 11:26 Pulse Ox 96 08/05/17 11:26 Intake & Output 08/04/17 08/05/17 08/05/17 18:59 06:59 18:59 Intake Total 3336 200 Balance 3336 200 Intake: Oral 3336 200 Other: Voiding Method Toilet Toilet # Voids 3 2 3 - Exam General appearance: Alert & oriented x3, no apparent distress. Head: Atraumatic, normocephalic, normal inspection Eyes: Well appearance, PERRLA, EOMI. Ear, nose and throat: Normal exam, mucous membranes moist Neck: Normal inspection, absent tenderness, lymphadenopathy. Respiratory: No increased work of breathing Cardiovascular: Regular rate, rhythm GI/abdominal: nontender, nondistended, no guarding Extremities: All range of motion, normal capillary refill, no tenderness, pedal edema joint swelling, calf tenderness. Neurological: cranial nerves II through XII intact no lateralizing weakness no seizure activity noted on physical exam no pronator drift and no nystagmus. strength is equal in all 4 extremities at 4+ out of 5 Sensation: normal in all 4 extremities to light touch musculoskeletal: Patient still has some tenderness to touch and palpation over the cervical spine and cervical paraspinal muscles as well as the lumbar spine specifically in the areas of the costovertebral angle laterally right greater than left. However symptoms are improving Psychological: Mood and affect appropriate for setting. - Labs CBC & Chem 7: 08/05/17 06:21 08/05/17 06:21 Labs: Abnormal Lab Results - Last 24 Hours (Table) 08/05/17 08/05/17 08/05/17 Range/Units 06:04 06:21 06:21 WBC 13.1 H (3.8-10.6) k/uL Neutrophils # 11.4 H (1.3-7.7) k/uL Glucose 210 H (74-99) mg/dL POC Glucose (mg/dL) 201 H (75-99) mg/dL 08/05/17 Range/Units 11:27 WBC (3.8-10.6) k/uL Neutrophils # (1.3-7.7) k/uL Glucose (74-99) mg/dL POC Glucose (mg/dL) 219 H (75-99) mg/dL Microbiology - Last 24 Hours (Table) 08/02/17 12:00 Blood Culture - Preliminary Blood No Growth after 72 hours 08/02/17 12:00 Urine Culture - Final Urine,Voided Escherichia fergusonii 08/03/17 14:34 Blood Culture - Preliminary Blood No Growth after 24 hours Assessment and Plan (1) Cervicalgia Current Visit: Yes Status: Acute Code(s): M54.2 - CERVICALGIA SNOMED Code( s): 83277281 (2) Lumbago Current Visit: Yes Status: Acute Code(s): M54.5 - LOW BACK PAIN SNOMED Code(s): 308963416 (3) Pyelonephritis Current Visit: Yes Status: Acute Code(s): N12 - TUBULO-INTERSTITIAL NEPHRITIS, NOT SPCF ACUTE OR CHRONIC SNOMED Code(s): 25339304 (4) Occipital neuritis Current Visit: Yes Status: Acute Code(s): M54.81 - OCCIPITAL NEURALGIA SNOMED Code(s): 79816399 Plan: 1. Occipital neuritis/head pain patient has tenderness to touch or palpation of the greater occipital nerve bilaterally but it is decreasing day over day. Patient also has mild cervical paraspinal stiffness right greater than left. Patient is negative for any symptoms for his exam findings consistent with cervical radiculopathy or facet etiology at this time. Patient's complaints are largely myofascial. Given the patient's significant pyelonephritis, patient does appear to have diffuse myalgia throughout the cervical thoracic and lumbar regions. orders as follows: decrease Dilaudid to 2 mg, maintain existing frequency as previously ordered and only provide Dilaudid in extreme pain IV Solu-Medrol 250 mg every 8 hours IV for the next 24 hours Zofran 4 mg, continue pre-existing order when necessary Bedside glucose checks per protocol 2. Cervicalgia see #[address] cervical spine unremarkable at this time. Patient's occipital neuralgia is improving as well as patient's cervicalgia after initiation of steroid. 3. Lumbago Patient's low thoracic and lumbar pain is consistent with myofascial pain. Patient also states that pain increases/costophrenic angle tenderness with palpation on physical exam. CT lumbar spine was negative and patient's myofascial pain appears related to her pyelonephritis discomfort. 4. pyelonephritis: continue to treat underlying etiology per plan of care. status: Neurology will continue to follow provide updates as needed or warranted , anticipate possible clearance for discharge on 08/06/17 if patient's symptoms are decreased to a tolerable level. I have discussed the plan of care with the physician prior to implementation and he agrees with the plan as implemented.
[2017-08-05 17:05] LABS: Glucose,Whole Blood 223 mg/dL (75-99)
--- NOTE | 2017-08-05 19:28 | PN ---
PROGRESS NOTE . DATE OF SERVICE: 08/05/2017 This 27-year-old woman with UTI with pyelonephritis also had grown from the culture. No chest pain. No palpitations. No fever. The CT scan is normal for the neck and back pain, possible myofascial pain and consult Neurology. EXAM: Alert and oriented times three. Pulse 90, blood pressure 128/82 respiration 22, temp 98 degrees, pulse ox 98% on room air. HEENT: Conjunctivae normal. Neck: No jugular venous distention. Cardiovascular: S1, S2. Respiration: Breath sounds diminished at the bases. No rhonchi. No crackles. Abdomen is soft, nontender. No mass palpable. Legs are no edema, no swelling. Central nervous system: No focal deficits. LABS: WBC 13.1, glucose 210. ASSESSMENT: 1. Acute urinary tract infection with right pyelonephritis with possible sepsis with history. 2. Increased AST/ALT. 3. Increased calcium. 4. Neck pain possibly musculoskeletal. 5. Increased WBC. 6. Obesity with body mass index of 40.8. RECOMMENDATIONS AND DISCUSSION: Recommend to continue current management. Continue with symptomatic treatment. Broad- spectrum IV antibiotics, symptomatic treatment of the pain. Guarded prognosis because of multiple complex medical issues. Further recommendations to follow. MMODL / IJN: [id number] / MTDD
[2017-08-05 21:03] LABS: Glucose,Whole Blood 332 mg/dL (75-99)
--- NOTE | 2017-08-06 00:01 | PN ---
PROGRESS NOTE DATE OF SERVICE: 08/05/2017 REASON FOR FOLLOWUP: E. coli right-sided pyelonephritis. INTERVAL HISTORY: The patient overall feels better and has improved. She is breathing comfortably. Denies any chest pain, shortness of breath, cough. Still complains of pain in the right flank area, but overall improving. No abdominal pain, no diarrhea. EXAMINATION: Blood pressure 106/71 with a pulse of 71, temperature 97.9. She is 94% on room air. General description is a middle-aged female up in the bed in no distress. RESPIRATORY SYSTEM: Unlabored breathing, clear to auscultation anteriorly. HEART: S1, S2. Regular rate and rhythm. ABDOMEN: Soft, no tenderness. LABS: Hemoglobin 11.4, white count 13.1 with a BUN of 13, creatinine 0.54. Urine with an E. coli. Blood cultures have been negative. DIAGNOSTIC IMPRESSION AND PLAN: Patient with right-sided pyelonephritis with an E. coli that is sensitive pathogen currently on Rocephin. Plan to finish therapy with p.o. Cipro 500 b.i.d. daily for another 10 days. Continue supportive care. MMODL / IJN: [id number] /
[2017-08-06 07:11] LABS: HCT 34.6 % (34.0-46.0); HGB 11.3 gm/dL (11.4-16.0); MCH 27.4 pg (25.0-35.0); MCHC 32.7 g/dL (31.0-37.0); MCV 83.7 fL (80.0-100.0); Mean Platelet Volume 6.5; Platelet Count 510 k/uL (150-450); RBC 4.14 m/uL (3.80-5.40); RDW 13.3 % (11.5-15.5)
[2017-08-06] MEDS: HYDROmorphone 2 MG TAB PO PRN ×2 (07:24→18:49)
[2017-08-06 07:28] LABS: WBC 25.9 k/uL (3.8-10.6)
[2017-08-06 07:37] LABS: Anion Gap 13 mmol/L; Blood Urea Nitrogen 12 mg/dL (7-17); Calcium 9.8 mg/dL (8.4-10.2); Carbon Dioxide 25 mmol/L (22-30); Chloride 105 mmol/L (98-107); Glucose 230 mg/dL (74-99); Potassium 4.4 mmol/L (3.5-5.1); Sodium 143 mmol/L (137-145)
[2017-08-06] MEDS: INSULIN ASPART 100 UNIT/ML 1 ML 10 ML VIAL SQ SCH ×4 (08:23→21:27)
[2017-08-06] MEDS: HEPARIN SODIUM,PORCINE 5,000 UNIT/ML 1 ML VIAL SQ SCH ×2 (08:26→21:28)
[2017-08-06] MEDS: cefTRIAXone IN SWFI 2,000 MG/20 ML SYRINGE IVP SCH ×2 (08:26→21:28)
[2017-08-06 09:09] LABS: Band Neutrophils % 2 %; Lymphocytes # (M) 1.04 k/uL (1.0-4.8); Monocytes # (M) 1.04 k/uL (0-1.0); Neutrophils % (M) 90 %; Nucleated Red Blood Cells 0 /100 WBC (0-0); Total Cells Counted 100; Toxic Vacuolation Present
[2017-08-06 09:10] LABS: Hypersegmented Neutrophils Present; Polychromasia Present
[2017-08-06 11:38] LABS: Glucose,Whole Blood 291 mg/dL (75-99)
--- NOTE | 2017-08-06 11:47 | PN ---
PROGRESS NOTE DATE OF SERVICE: 08/06/2017 REASON FOR FOLLOWUP: Right-sided pyelonephritis secondary to Escherichia coli. INTERVAL HISTORY: The patient is afebrile. The patient is breathing comfortably. Pain to the right leg is slightly improved. Denies having any chest pain, shortness of breath: No nausea or vomiting. No diarrhea. PHYSICAL EXAMINATION: Blood pressure 126/86, pulse of 80, temperature of 98.2. She is 96% on room air. General description is a middle aged female, lying in bed in no distress. RESPIRATORY SYSTEM: Unlabored breathing, clear to auscultation anteriorly. HEART: S1, S2. Regular rate and rhythm. ABDOMEN: Soft, no tenderness. LABS: Hemoglobin 11.3, white count of 25.9 with a BUN of 12, creatinine 0.50. Blood cultures have been negative. Urine with the Escherichia Cole which is a sensitive pathogen. DIAGNOSTIC IMPRESSION AND PLAN: Patient with a Escherichia right-sided pyelonephritis, currently on Rocephin with the plan to finish therapy with oral Cipro 500 mg twice a day for another 10 days with close outpatient followup. Continue supportive care. MMODL / IJN: [id number] /
[2017-08-06] MEDS: PANTOPRAZOLE 40 MG TABLET PO SCH (14:05)
[2017-08-06] MEDS: SODIUM CHLORIDE 0.9% 1,000 ML IV SCH (15:20)
[2017-08-06 17:19] LABS: Glucose,Whole Blood 307 mg/dL (75-99)
--- NOTE | 2017-08-06 17:58 | P.PN ---
Subjective Progress Note Date: 08/06/17 Principal diagnosis: headache, neck pain Neurology is following on a 27-year-old female with multiple complex medical issues. Patient has history of asthma, diabetes, sickle cell anemia trait, pyelonephritis, ADHD. Patient is also being followed and primary care provider in the outpatient setting and began complaining of recurrent urinary tract infection previous to presentation at . She did complain of the time of fever , rigors, chills and some dysuria and left flank pain patient's white count was noted to be elevated and is still elevated but improving. Patient does have left low back pain bilaterally as well as cervical pain and increased occipital tenderness bilaterally. Patient had CT of the lumbar spine and cervical spine ordered after initial consultation yesterday. CT lumbar and CT cervical spine were unremarkable per radiology. It was noted yesterday the patient's pain was largely myofascial as well as located over the costovertebral angles consistent with costovertebral tenderness related to the patient's pyelonephritis. patient did have IV Solu-Medrol 250 mg IV piggyback every 6 hours, blood glucose monitoring and sliding scale insulin implemented after consultation yesterday. Patient also had Zofran ordered as well. Interval update (08/06/17): Patient was rounded on 0645 hrs. today. Patient states that she is having no new neurological deficits. Patient states that her head pain is resolving and previously was a 9 out of 10 and is now currently a 6 out of 10. patient is alert and oriented 3, resting in bed in no acute distress. Interval update (08/05/17): Today, the patient was seated at the bedside, resting in no acute distress. Patient was alert and oriented 3. patient states that the IV Solu-Medrol is decreasing her head pain as well as decreasing her myofascial pain in the cervical and lumbar areas. Patient is using Dilaudid on a regular basis which makes steroid effectiveness and reassessment difficult. Nursing has been attempting to discourage the patient's use of Dilaudid. Objective - Vital Signs Vital signs: Vital Signs Temp 98.1 F 08/06/17 15:14 Pulse 66 08/06/17 15:14 Resp 20 08/06/17 15:14 BP 122/71 08/06/17 15:14 Pulse Ox 97 08/06/17 15:14 Intake & Output 0408/06/17 08/06/17 18:59 06:59 18:59 Intake Total 680 1200 Balance 680 1200 Intake: Oral 680 1200 Other: Voiding Method Toilet Toilet Toilet # Voids 3 2 3 - Exam General appearance: Alert & oriented x3, no apparent distress. Head: Atraumatic, normocephalic, normal inspection Eyes: Well appearance, PERRLA, EOMI. Ear, nose and throat: Normal exam, mucous membranes moist Neck: Normal inspection, absent tenderness, lymphadenopathy. Respiratory: No increased work of breathing Cardiovascular: Regular rate, rhythm GI/abdominal: nontender, nondistended, no guarding Extremities: All range of motion, normal capillary refill, no tenderness, pedal edema joint swelling, calf tenderness. Neurological: cranial nerves II through XII intact no lateralizing weakness no seizure activity noted on physical exam no pronator drift and no nystagmus. strength is equal in all 4 extremities at 4+ out of 5 Sensation: normal in all 4 extremities to light touch musculoskeletal: Patient still has some tenderness to touch and palpation over the cervical spine and cervical paraspinal muscles as well as the lumbar spine specifically in the areas of the costovertebral angle laterally right greater than left. However symptoms are improving Psychological: Mood and affect appropriate for setting. - Labs CBC & Chem 7: 08/06/17 06:29 08/06/17 06:29 Labs: Abnormal Lab Results - Last 24 Hours (Table) 08/05/17 08/06/17 08/06/17 Range/Units 21:01 06:29 06:29 WBC 25.9 H* (3.8-10.6) k/uL Hgb 11.3 L (11.4-16.0) gm/dL Plt Count 510 H (150-450) k/uL Neutrophils # (Manual) 23.80 H (1.3-7.7) k/uL Monocytes # (Manual) 1.04 H (0-1.0) k/uL Creatinine 0.50 L (0.52-1.04) mg/dL Glucose 230 H (74-99) mg/dL POC Glucose (mg/dL) 332 H (75-99) mg/dL 08/06/17 08/06/17 Range/Units 11:35 17:06 WBC (3.8-10.6) k/uL Hgb (11.4-16.0) gm/dL Plt Count (150-450) k/uL Neutrophils # (Manual) (1.3-7.7) k/uL Monocytes # (Manual) (0-1.0) k/uL Creatinine (0.52-1.04) mg/dL Glucose (74-99) mg/dL POC Glucose (mg/dL) 291 H 307 H (75-99) mg/dL Microbiology - Last 24 Hours (Table) 08/03/17 14:34 Blood Culture - Preliminary Blood No Growth after 72 hours 08/02/17 12:00 Blood Culture - Preliminary Blood No Growth after 96 hours Assessment and Plan (1) Cervicalgia Current Visit: Yes Status: Acute Code(s): M54.2 - CERVICALGIA SNOMED Code( s): 22886502 (2) Lumbago Current Visit: Yes Status: Acute Code(s): M54.5 - LOW BACK PAIN SNOMED Code(s): 372380096 (3) Pyelonephritis Current Visit: Yes Status: Acute Code(s): N12 - TUBULO-INTERSTITIAL NEPHRITIS, NOT SPCF ACUTE OR CHRONIC SNOMED Code(s): 74581319 (4) Occipital neuritis Current Visit: Yes Status: Acute Code(s): M54.81 - OCCIPITAL NEURALGIA SNOMED Code(s): 17462234 Plan: 1. Occipital neuritis/head pain patient has tenderness to touch or palpation of the greater occipital nerve bilaterally but it is decreasing day over day. Patient also has mild cervical paraspinal stiffness right greater than left. Patient is negative for any symptoms for his exam findings consistent with cervical radiculopathy or facet etiology at this time. Patient's complaints are largely myofascial. Given the patient's significant pyelonephritis, patient does appear to have diffuse myalgia throughout the cervical thoracic and lumbar regions. orders as follows: decrease Dilaudid to 2 mg, maintain existing frequency as previously ordered and only provide Dilaudid in extreme pain continue IV Solu-Medrol and existing dose and frequency. Zofran 4 mg, continue pre-existing order when necessary Bedside glucose checks per protocol IV Solu-Medrol can be stopped after evening dose 08/06/17. The patient has intolerable head pain after examination of her steroids, contact neurology for updated oral medication regimen. 2. Cervicalgia see #[address] cervical spine unremarkable at this time. Patient's occipital neuralgia is improving as well as patient's cervicalgia after initiation of steroid. 3. Lumbago Patient's low thoracic and lumbar pain is consistent with myofascial pain. Patient also states that pain increases/costophrenic angle tenderness with palpation on physical exam. CT lumbar spine was negative and patient's myofascial pain appears related to her pyelonephritis discomfort. 4. pyelonephritis: continue to treat underlying etiology per plan of care. 5. Elevated WBC: Nursing advised provider midday today that the patient was having elevated white blood cell count. Provider discussed elevated white blood cell count was supervising physician. Supervising physician advised continue regimen as ordered with regard to IV Solu-Medrol, Zofran and glucose checks with sliding scale insulin. status: Neurology will continue to follow on as-needed basis. Patient can be cleared for discharge from neurological standpoint once completion of IV steroid as noted above. I have discussed the plan of care with the physician prior to implementation and he agrees with the plan as implemented.
--- NOTE | 2017-08-06 18:23 | PN ---
PROGRESS NOTE DATE OF SERVICE: 08/06/2017 This 27-year-old woman who was admitted with UTI with pyelonephritis and is also on high-dose IV steroids per Neurology. No chest pain. No palpitations. No fever. On exam, alert and oriented x3. Pulse 66, blood pressure 122/71, respiration 20, temperature temperature 98.1, pulse ox 97% on room air. HEENT: Conjunctivae normal. NECK: No jugular venous distention. CARDIOVASCULAR SYSTEM: S1, S2 muffled. RESPIRATORY SYSTEM: Breath sounds diminished at the bases. No rhonchi. No crackles. ABDOMEN: Soft, non-tender. No mass palpable. LEGS: No edema. No swelling. NERVOUS SYSTEM: No focal deficit. LABS: WBC 24.9. Glucose is 307. ASSESSMENT: 1. Acute urinary tract infection with right pyelonephritis with possible sepsis, present on admission. 2. Increased AST, ALT. 3. Increased calcium. 4. Steroid-induced diabetes mellitus, type 2. 5. Neck pain, possibly musculoskeletal. 6. Increased white count. 7. Obesity with body mass index of 40.8. RECOMMENDATIONS AND DISCUSSION: I recommend to continue current medication, continue symptomatic treatment. Hemoglobin A1c is only 6. I would continue with insulin coverage. Otherwise, guarded prognosis because of multiple complex medical issues. Further recommendations to follow. MMODL / IJN: [id number] /
[2017-08-06 21:08] LABS: Glucose,Whole Blood 315 mg/dL (75-99)
[2017-08-07] MEDS: SODIUM CHLORIDE 0.9% 1,000 ML IV SCH (05:24)
[2017-08-07] MEDS: PANTOPRAZOLE 40 MG TABLET PO SCH (06:59)
[2017-08-07 07:09] LABS: Glucose,Whole Blood 216 mg/dL (75-99)
[2017-08-07] MEDS: INSULIN ASPART 100 UNIT/ML 1 ML 10 ML VIAL SQ SCH ×2 (07:35→11:13)
[2017-08-07] MEDS: HEPARIN SODIUM,PORCINE 5,000 UNIT/ML 1 ML VIAL SQ SCH (07:36)
[2017-08-07 08:04] LABS: HCT 35.9 % (34.0-46.0); HGB 11.8 gm/dL (11.4-16.0); MCH 27.3 pg (25.0-35.0); MCHC 32.8 g/dL (31.0-37.0); MCV 83.4 fL (80.0-100.0); Mean Platelet Volume 6.6; Platelet Count 538 k/uL (150-450); RDW 13.3 % (11.5-15.5)
[2017-08-07 08:10] LABS: WBC 26.5 k/uL (3.8-10.6)
[2017-08-07 08:20] LABS: Anion Gap 14 mmol/L; Blood Urea Nitrogen 12 mg/dL (7-17); Calcium 9.4 mg/dL (8.4-10.2); Carbon Dioxide 27 mmol/L (22-30); Chloride 102 mmol/L (98-107); Glucose 242 mg/dL (74-99); Sodium 143 mmol/L (137-145)
[2017-08-07 08:41] VITALS: BP 126/73; PULSE 64; RESP 16; TEMP 97.5
[2017-08-07] MEDS: cefTRIAXone IN SWFI 2,000 MG/20 ML SYRINGE IVP SCH (08:53)
[2017-08-07 09:49] LABS: Band Neutrophils % 3 %; Lymphocytes # (M) 4.51 k/uL (1.0-4.8); Metamyelocytes % 3 %; Monocytes # (M) 0.27 k/uL (0-1.0); Myelocytes % 3 %; Neutrophils % (M) 75 %; Nucleated Red Blood Cells 0 /100 WBC (0-0); Total Cells Counted 200
[2017-08-07 09:50] LABS: Toxic Granulation Present
[2017-08-07 11:08] LABS: Glucose,Whole Blood 229 mg/dL (75-99)
--- NOTE | 2017-08-07 12:58 | PN ---
PROGRESS NOTE DATE OF SERVICE: 08/07/2017 REASON FOR FOLLOWUP: Right-sided pyelonephritis. INTERVAL HISTORY: The patient is afebrile. She is currently breathing comfortably. Her headache has improved. No chest pain. No cough. No abdominal pain or any diarrhea. PHYSICAL EXAMINATION: On examination, blood pressure is 126/73, pulse of 64, temperature 97.5. She is 98% on room air. General description is a middle-aged female lying in bed in no distress. RESPIRATORY SYSTEM: Unlabored breathing, clear to auscultation anteriorly. HEART: S1, S2. Regular rate and rhythm. ABDOMEN: Soft, no tenderness. LABS: Hemoglobin is 11.8, white count is 26.5 with a BUN of 12, creatinine 0.56. DIAGNOSTIC IMPRESSION AND PLAN: Patient with Escherichia fergusonii right-sided pyelonephritis. Blood culture has been negative. Overall improvement on Rocephin. To finish therapy with oral Cipro, has been sent to the pharmacy. Continue supportive care. MMODL / IJN: [id number] /
--- NOTE | 2017-08-08 07:35 | DS ---
DISCHARGE SUMMARY FINAL DIAGNOSES: 1. Acute urinary tract infection with right pyelonephritis with possible sepsis, present on admission. 2. Increased AST, ALT. 3. Increased calcium. 4. Steroid-induced diabetes mellitus type 2. 5. Neck pain, possibly musculoskeletal. 6. Increased WBC. 7. Obesity with body mass index 40.8. DISCHARGE DISPOSITION: The patient will be discharged in stable condition with guarded prognosis. HISTORY OF PRESENT ILLNESS: This 27-year-old woman with past medical history of multiple medical problems admitted with acute UTI with right pyelonephritis. The patient was treated with IV antibiotics. Patient also had severe pain, IV steroids were given. Neurology and Infectious Disease saw the patient. The CAT scan did not show acute abnormality. On exam, vitals are stable. CARDIOVASCULAR: S1 and S2, muffled. ABDOMEN: Soft. NERVOUS SYSTEM: No focal deficits. DISCHARGE ADVICE: 1. Diet is cardiac. 2. Activity limited until followup. 3. Follow up with Dr. Ward in 2 to 3 days. 4. Follow up with Dr. Rodriguez and Dr. Poole as advised. Medications to be as follows: 1. Tylenol 650 q.6 p.r.n. 2. Cipro 500 mg p.o. b.i.d. for 10 days. 3. Medrol Dosepak. 4. Prilosec 20 mg daily. Once again, the patient will be discharged in stable condition with guarded prognosis. MMERICKAL / LOPEZN: [id number] /
== END 2017-08-07 12:21 | disposition home or self-care (01) | DRG 872 ==
LOC: EC 09:55 → 5MS5E 13:07 → 6PED 08-03 11:05 → OBSVTOIN 08-03 11:09 → 6PED 08-03 16:53
PROVIDERS: ADMIT Hospitalist; ATTEND Hospitalist
DX: A41.51 Sepsis due to Escherichia coli [E. coli] (principal); E66.01 Morbid (severe) obesity due to excess calories; N10 Acute pyelonephritis; Z68.41 Body mass index [BMI] 40.0-44.9, adult; M79.1 Myalgia; D57.3 Sickle-cell trait; E11.9 Type 2 diabetes mellitus without complications; M54.81 Occipital neuralgia; F90.9 Attention-deficit hyperactivity disorder, unspecified type; J45.909 Unspecified asthma, uncomplicated; Z87.440 Personal history of urinary (tract) infections; Z88.6 Allergy status to analgesic agent
CPT/HCPCS: 36415; 70450; 70490; 72125; 72131; 74176; 80048; 80053; 80306; 81001; 81025; 83036; 83605; 85025; 85652; 86140; 87040; 87077; 87086; 87186; 87502; 96361; 96374; 96375; 99284

== ENCOUNTER 2018-12-02 17:18 | Emergency (ER) | payer OTHER ==
[2018-12-02 17:56] VITALS: BP 118/69; PULSE 69; RESP 18; TEMP 98.9
[2018-12-02 18:31] LABS: Appearance,Urine Clear (Clear); Bacteria,Urine Rare /hpf; Bilirubin,Urine Negative (Negative); Blood,Urine Negative (Negative); Color,Urine Light Yellow; Glucose,Urine (UA) Negative (Negative); Ketones,Urine Negative (Negative); Leukocyte Esterase,Urine Trace (Negative); Mucus,Urine Rare /hpf; Nitrite,Urine Negative (Negative); PH, Urine 5.5 (5.0-8.0); Protein,Urine Negative (Negative); RBC,Urine 1 /hpf (0-5); Specific Gravity,Urine 1.011 (1.001-1.035); Squamous Epithelial Cell,Urine 5 /hpf (0-4); Urobilinogen,Urine <2.0 mg/dL (<2.0); WBC,Urine 2 /hpf (0-5)
--- NOTE | 2018-12-02 19:09 | ED ---
Female Urogenital HPI - General Chief complaint: Urogenital Stated complaint: blood in urine Time Seen by Provider: 12/02/18 18:05 Source: patient Mode of arrival: ambulatory - History of Present Illness Initial comments: Patient is a 28-year-old female presenting to the emergency Department with complaints of burning while taking out her NuvaRing since today. Patient states she is also complaining of blood in her urine and some mild burning with urination since this morning. Patient reports history of severe UTI that required hospitalization and she is worried she has another UTI. Patient denies fever, chills, abdominal pain. Patient states this is her first time using a NuvaRing. Patient has no other complaints at this time. Upon arrival to ER, vital signs stable, afebrile. Last Menstrual Period: 11/18/18 - Related Data Previous Rx's Medication Instructions Recorded Acetaminophen Tab [Tylenol] 650 mg PO Q6HR PRN tab 08/06/17 Ciprofloxacin HCl [Cipro] 500 mg PO BID #20 tablet 08/06/17 Omeprazole [PriLOSEC] 20 mg PO AC-BID #20 cap 08/06/17 methylPREDNISolone [Medrol] See Taper PO DAILY #18 tablet 08/07/17 Allergies Allergy/AdvReac Type Severity Reaction Status Date / Time ibuprofen [From Motrin] Allergy Severe Anaphylaxis Verified 12/02/18 17:57 Review of Systems ROS Statement: Those systems with pertinent positive or pertinent negative responses have been documented in the HPI. ROS Other: All systems not noted in ROS Statement are negative. Past Medical History Past Medical History: Asthma, Diabetes Mellitus Additional Past Medical History / Comment(s): Sickle Cell Anemia trait, pyelonephritis 4-5 yrs ago, gestational diabetes History of Any Multi-Drug Resistant Organisms: None Reported Past Surgical History: Section Additional Past Surgical History / Comment(s): Eye surgery for strabismus bilaterally. Past Anesthesia/Blood Transfusion Reactions: No Reported Reaction Past Psychological History: ADD/ADHD Smoking Status: Never smoker Past Alcohol Use History: None Reported Past Drug Use History: Marijuana - Past Family History Mother Family Medical History: No Reported History Additional Family Medical History / Comment(s): Obesity Father History Unknown: Yes General Exam - General Exam Comments Initial Comments: GENERAL: Well-appearing, well-nourished and in no acute distress. HEAD: Atraumatic, normocephalic. EYES: Pupils equal round and reactive to light, extraocular movements intact, sclera anicteric, conjunctiva are normal. ENT: TMs normal, nares patent, oropharynx clear without exudates. Moist mucous membranes. NECK: Normal range of motion, supple without lymphadenopathy or JVD. LUNGS: Breath sounds clear to auscultation bilaterally and equal. No wheezes rales or rhonchi. HEART: Regular rate and rhythm without murmurs, rubs or gallops. ABDOMEN: Soft, nontender, normoactive bowel sounds. No guarding, no rebound. No masses appreciated. : Deferred, declined. EXTREMITIES: Normal range of motion, no pitting or edema. No clubbing or cyanosis. NEUROLOGICAL: Cranial nerves II through XII grossly intact. Normal speech, normal gait. PSYCH: Normal mood, normal affect. SKIN: Warm, Dry, normal turgor, no rashes or lesions noted. Course Vital Signs 12/02/18 17:54 Temperature 98.9 F Pulse Rate 69 Respiratory 18 Rate Blood Pressure 118/69 O2 Sat by Pulse 100 Oximetry Medical Decision Making - Medical Decision Making Patient is a 28-year-old female presenting with UTI-type symptoms 1 day. Patient is using NuvaRing for the first time and had some burning while removing the ring. He shouldn't has history of hospitalization with UTI in the past. Patient's exam is unremarkable. Patient's UA shows no signs of infection, normal. Patient declined vaginal exam at this time. Return parameters were discussed with the patient she verbalized understanding. Patient will follow up with PCP as symptoms continue. Patient is stable for discharge. Case discussed with Dr. Castro. - Lab Data Lab Results 12/02/18 Range/Units 18:15 Urine Color Light Yellow Urine Appearance Clear (Clear) Urine pH 5.5 (5.0-8.0) Ur Specific [place] 1.011 (1.001-1.035) Urine Protein Negative (Negative) Urine Glucose (UA) Negative (Negative) Urine Ketones Negative (Negative) Urine Blood Negative (Negative) Urine Nitrite Negative (Negative) Urine Bilirubin Negative (Negative) Urine Urobilinogen <2.0 (<2.0) mg/dL Ur Leukocyte Esterase Trace H (Negative) Urine RBC 1 (0-5) /hpf Urine WBC 2 (0-5) /hpf Ur Squamous Epith Cells 5 H (0-4) /hpf Urine Bacteria Rare H (None) /hpf Urine Mucus Rare H (None) /hpf Disposition Clinical Impression: Vaginal discomfort Disposition: HOME SELF-CARE Condition: Stable Instructions (If sedation given, give patient instructions): Normal Exam (ED) Additional Instructions: Please return to the Emergency Department if symptoms worsen or any other concerns. Is patient prescribed a controlled substance at d/c from ED?: No Referrals: Ray Ward MD [Primary Care Provider] - 1-2 days
== END 2018-12-02 19:26 | disposition home or self-care (01) ==
LOC: EC 17:18
DX: N89.8 Other specified noninflammatory disorders of vagina (principal); R31.9 Hematuria, unspecified; R20.8 Other disturbances of skin sensation; Z88.6 Allergy status to analgesic agent; Z87.440 Personal history of urinary (tract) infections
CPT/HCPCS: 81001; 99283

== ENCOUNTER 2019-01-22 15:44 | Emergency (ER) | payer OTHER ==
--- NOTE | 2019-01-22 16:08 | ED ---
General Adult HPI - General Chief complaint: Back Pain/Injury Stated complaint: pain with taking deep breaths Time Seen by Provider: 01/22/19 15:56 Source: patient, RN notes reviewed Mode of arrival: ambulatory Limitations: no limitations - History of Present Illness Initial comments: 29-year-old female presents emergency from chief complaint of shortness breath, back pain. Patient states that she knows of last day or so she's had pain which takes a deep inspiration. Patient makes her catch her breath. Patient states that she did take [place]orado for her which helped her pain. Patient states that she has no history of PE or DVT. Patient states it's not better at rest she does have mild discomfort with range of motion. Denies any trauma no fever or chills no recent URI symptoms. - Related Data Previous Rx's Medication Instructions Recorded Acetaminophen Tab [Tylenol] 650 mg PO Q6HR PRN tab 08/06/17 Ciprofloxacin HCl [Cipro] 500 mg PO BID #20 tablet 08/06/17 Omeprazole [PriLOSEC] 20 mg PO AC-BID #20 cap 08/06/17 methylPREDNISolone [Medrol] See Taper PO DAILY #18 tablet 08/07/17 Allergies Allergy/AdvReac Type Severity Reaction Status Date / Time ibuprofen [From Motrin] Allergy Severe Anaphylaxis Verified 12/02/18 17:57 Review of Systems ROS Statement: Those systems with pertinent positive or pertinent negative responses have been documented in the HPI. ROS Other: All systems not noted in ROS Statement are negative. Past Medical History Past Medical History: Asthma, Diabetes Mellitus Additional Past Medical History / Comment(s): Sickle Cell Anemia trait, pyelonephritis 4-5 yrs ago, gestational diabetes History of Any Multi-Drug Resistant Organisms: None Reported Past Surgical History: Section Additional Past Surgical History / Comment(s): Eye surgery for strabismus bilaterally. Past Anesthesia/Blood Transfusion Reactions: No Reported Reaction Past Psychological History: ADD/ADHD Smoking Status: Never smoker Past Alcohol Use History: None Reported Past Drug Use History: Marijuana - Past Family History Mother Family Medical History: No Reported History Additional Family Medical History / Comment(s): Obesity Father History Unknown: Yes General Exam Limitations: no limitations General appearance: alert, in no apparent distress Head exam: Present: atraumatic, normocephalic, normal inspection Eye exam: Present: normal appearance, PERRL, EOMI. Absent: scleral icterus, conjunctival injection, periorbital swelling ENT exam: Present: normal exam, normal oropharynx, mucous membranes moist Neck exam: Present: normal inspection, full ROM. Absent: tenderness, meningismus, lymphadenopathy Respiratory exam: Present: normal lung sounds bilaterally. Absent: respiratory distress, wheezes, rales, rhonchi, stridor Cardiovascular Exam: Present: regular rate, normal rhythm, normal heart sounds. Absent: systolic murmur, diastolic murmur, rubs, gallop, clicks Back exam: Present: full ROM, tenderness (Right paraspinal thoracic) Skin exam: Present: warm, dry, intact, normal color. Absent: rash Course Vital Signs 01/22/19 15:49 Temperature 98.1 F Pulse Rate 92 Respiratory 20 Rate Blood Pressure 106/64 O2 Sat by Pulse 98 Oximetry EKG Findings - EKG Comments: EKG Findings:: EKG performed at 16:16 normal sinus rhythm rate of 70 SD 140 QRS 94 QT/QTC 378/408 - EKG Results: EKG: interpreted by GILSON Medical Decision Making - Medical Decision Making Patient had labs including CBC, BMP troponin and d-dimer. This is all within normal limits. Chest x-ray shows cardiomegaly and some atelectasis. Patient has no URI symptoms or infiltrate. She is advised that she needs a follow-up with PCP or cardiology for an echo. Patient's pain in her back is reproducible muscle skeletal pain. Patient will continue her [place]orado and return for any worsening symptoms. - Lab Data Result diagrams: 01/22/19 16:01/22/19 16: Lab Results 01/22/19 01/22/19 01/22/19 Range/Units 16:19 16:19 16:19 WBC 6.4 (3.8-10.6) k/uL RBC 4.03 (3.80-5.40) m/uL Hgb 10.8 L (11.4-16.0) gm/dL Hct 34.6 (34.0-46.0) % MCV 85.7 (80.0-100.0) fL MCH 26.7 (25.0-35.0) pg MCHC 31.1 (31.0-37.0) g/dL RDW 14.2 (11.5-15.5) % Plt Count 485 H (150-450) k/uL Neutrophils % 61 % Lymphocytes % 25 % Monocytes % 6 % Eosinophils % 3 % Basophils % 3 % Neutrophils # 3.9 (1.3-7.7) k/uL Lymphocytes # 1.6 (1.0-4.8) k/uL Monocytes # 0.4 (0-1.0) k/uL Eosinophils # 0.2 (0-0.7) k/uL Basophils # 0.2 (0-0.2) k/uL D-Dimer 0.55 (<0.60) mg/L FEU Sodium 140 (137-145) mmol/L Potassium 4.1 (3.5-5.1) mmol/L Chloride 108 H (98-107) mmol/L Carbon Dioxide 24 (22-30) mmol/L Anion Gap 8 mmol/L BUN 10 (7-17) mg/dL Creatinine 0.79 (0.52-1.04) mg/dL Est GFR (CKD-EPI)AfAm >90 (>60 ml/min/1.73 sqM) Est GFR (CKD-EPI)NonAf >90 (>60 ml/min/1.73 sqM) Glucose 103 H (74-99) mg/dL Calcium 9.6 (8.4-10.2) mg/dL Troponin I (0.000-0.034) ng/mL 01/22/19 Range/Units 16:19 WBC (3.8-10.6) k/uL RBC (3.80-5.40) m/uL Hgb (11.4-16.0) gm/dL Hct (34.0-46.0) % MCV (80.0-100.0) fL MCH (25.0-35.0) pg MCHC (31.0-37.0) g/dL RDW (11.5-15.5) % Plt Count (150-450) k/uL Neutrophils % % Lymphocytes % % Monocytes % % Eosinophils % % Basophils % % Neutrophils # (1.3-7.7) k/uL Lymphocytes # (1.0-4.8) k/uL Monocytes # (0-1.0) k/uL Eosinophils # (0-0.7) k/uL Basophils # (0-0.2) k/uL D-Dimer (<0.60) mg/L FEU Sodium (137-145) mmol/L Potassium (3.5-5.1) mmol/L Chloride (98-107) mmol/L Carbon Dioxide (22-30) mmol/L Anion Gap mmol/L BUN (7-17) mg/dL Creatinine (0.52-1.04) mg/dL Est GFR (CKD-EPI)AfAm (>60 ml/min/1.73 sqM) Est GFR (CKD-EPI)NonAf (>60 ml/min/1.73 sqM) Glucose (74-99) mg/dL Calcium (8.4-10.2) mg/dL Troponin I <0.012 (0.000-0.034) ng/mL Disposition Clinical Impression: Thoracic back pain, Cardiomegaly Disposition: HOME SELF-CARE Condition: Stable Instructions (If sedation given, give patient instructions): Back Pain (ED) Additional Instructions: Please follow up for an echocardiogram.Please return to the Emergency Department if symptoms worsen or any other concerns. Is patient prescribed a controlled substance at d/c from ED?: No Referrals: Ray Ward MD [Primary Care Provider] - 1-2 days Maury Mauricio MD [STAFF PHYSICIAN] - 1-2 days Time of Disposition: 17:24
[2019-01-22 16:32] LABS: Basophils # (A) 0.2 k/uL (0-0.2); Basophils % (A) 3 %; Eosinophils # (A) 0.2 k/uL (0-0.7); Eosinophils % (A) 3 %; HCT 34.6 % (34.0-46.0); HGB 10.8 gm/dL (11.4-16.0); Lymphocytes # (A) 1.6 k/uL (1.0-4.8); Lymphocytes % (A) 25 %; MCH 26.7 pg (25.0-35.0); MCHC 31.1 g/dL (31.0-37.0); MCV 85.7 fL (80.0-100.0); Mean Platelet Volume 6.4; Monocytes # (A) 0.4 k/uL (0-1.0); Monocytes % (A) 6 %; Neutrophils # (A) 3.9 k/uL (1.3-7.7); Neutrophils % (A) 61 %; Platelet Count 485 k/uL (150-450); RBC 4.03 m/uL (3.80-5.40); RDW 14.2 % (11.5-15.5); WBC 6.4 k/uL (3.8-10.6)
[2019-01-22 16:40] LABS: African American GFR (CKD) >90 (>60 ml/min/1.73 sqM); Anion Gap 8 mmol/L; Blood Urea Nitrogen 10 mg/dL (7-17); Calcium 9.6 mg/dL (8.4-10.2); Carbon Dioxide 24 mmol/L (22-30); Chloride 108 mmol/L (98-107); Glucose 103 mg/dL (74-99); Potassium 4.1 mmol/L (3.5-5.1); Sodium 140 mmol/L (137-145)
--- NOTE | 2019-01-22 16:44 | XR ---
EXAMINATION TYPE: XR chest 2V DATE OF EXAM: 01/22/2019 COMPARISON: NONE HISTORY: Pain and shortness of breath. TECHNIQUE: Frontal and lateral views of the chest are obtained. FINDINGS: There is patchy left basilar opacity silhouetting portions of left hemidiaphragm. Right l gray is clear. Overlying EKG leads are seen. The cardiac silhouette size is mildly enlarged. The oss eous structures are intact. IMPRESSION: Cardiomegaly somewhat unusual for patient's age with patchy left basilar atelectasis and/ or infiltrate. Consider cardiac echo follow up.
[2019-01-22 17:39] VITALS: BP 108/68; PULSE 64; RESP 21; TEMP 98.7
== END 2019-01-22 17:39 | disposition home or self-care (01) ==
LOC: EC 15:44
DX: I51.7 Cardiomegaly (principal); M54.6 Pain in thoracic spine; J98.11 Atelectasis; Z88.6 Allergy status to analgesic agent
CPT/HCPCS: 36415; 71046; 80048; 84484; 85025; 85379; 93005; 99285

== ENCOUNTER 2019-08-17 05:33 | Emergency (ER) | payer OTHER ==
[2019-08-17 05:42] VITALS: TEMP 98.1
[2019-08-17] MEDS ORDERED: AZITHROMYCIN 500 MG TAB PO STA (06:24)
[2019-08-17] MEDS ORDERED: cefTRIAXone 250 MG VIAL IM STA (06:24)
[2019-08-17] MEDS ORDERED: metroNIDAZOLE 500 MG TAB PO STA (06:24)
[2019-08-17 06:28] LABS: Appearance,Urine Cloudy (Clear); Bacteria,Urine Rare /hpf; Bilirubin,Urine Negative (Negative); Blood,Urine Negative (Negative); Color,Urine Light Yellow; Glucose,Urine (UA) Negative (Negative); Ketones,Urine Negative (Negative); Leukocyte Esterase,Urine Large (Negative); Nitrite,Urine Negative (Negative); Protein,Urine Negative (Negative); RBC,Urine 2 /hpf (0-5); Specific Gravity,Urine 1.011 (1.001-1.035); Squamous Epithelial Cell,Urine 8 /hpf (0-4); Urobilinogen,Urine <2.0 mg/dL (<2.0); WBC,Urine 29 /hpf (0-5)
--- NOTE | 2019-08-17 06:31 | ED ---
Female Urogenital HPI - General Chief complaint: Urogenital Stated complaint: UTI Time Seen by Provider: 08/17/19 05:57 Source: patient, RN notes reviewed, old records reviewed Mode of arrival: ambulatory Limitations: no limitations - History of Present Illness Initial comments: Patient is 29-year-old female presents emergency department today with chief complaint of dysuria, concerns for urinary tract infection. She complains of vaginal irritation and minor discharge. She states that she is not overly concerned for any 60 transmitted infections but would like to prophylactically be treated at this time. Patient states that she does use a NuvaRing for control. Patient reports that she has no flank pain. She does report some suprapubic cramping. She is a diabetic and states that she's had more frequent urination. She's had a history of severe urinary tract infections causing pyelonephritis in the past. She states she does not feel as bad today she did when she had pyelonephritis once the precautions and started on antibiotics if she does have a UTI. Patient states that she has had no nausea or vomiting or fever. She denies significant flank pain. Last Menstrual Period: 08/03/19 - Related Data Previous Rx's Medication Instructions Recorded Acetaminophen Tab [Tylenol] 650 mg PO Q6HR PRN tab 08/06/17 Ciprofloxacin HCl [Cipro] 500 mg PO BID #20 tablet 08/06/17 Omeprazole [PriLOSEC] 20 mg PO AC-BID #20 cap 08/06/17 methylPREDNISolone [Medrol] See Taper PO DAILY #18 tablet 08/07/17 Fluconazole [Diflucan] 150 mg PO DAILY #2 tab 08/17/19 Nitrofurantoin Monohyd/M-Cryst 100 mg PO Q12HR #14 cap 08/17/19 [Macrobid] Phenazopyridine HCl [Pyridium] 100 mg PO TID #9 tab 08/17/19 Allergies Allergy/AdvReac Type Severity Reaction Status Date / Time ibuprofen [From Motrin] Allergy Severe Anaphylaxis Verified 12/02/18 17:57 Review of Systems ROS Statement: Those systems with pertinent positive or pertinent negative responses have been documented in the HPI. ROS Other: All systems not noted in ROS Statement are negative. Past Medical History Past Medical History: Asthma, Diabetes Mellitus Additional Past Medical History / Comment(s): Sickle Cell Anemia trait, pyelonephritis 4-5 yrs ago, gestational diabetes History of Any Multi-Drug Resistant Organisms: None Reported Past Surgical History: Section Additional Past Surgical History / Comment(s): Eye surgery for strabismus bilaterally. cyst removal. Past Anesthesia/Blood Transfusion Reactions: No Reported Reaction Past Psychological History: ADD/ADHD Smoking Status: Former smoker Past Alcohol Use History: None Reported Past Drug Use History: Marijuana - Past Family History Mother Family Medical History: No Reported History Additional Family Medical History / Comment(s): Obesity Father History Unknown: Yes General Exam - General Exam Comments Initial Comments: This is an alert and oriented 29-year-old -[place] female. No distress. Limitations: no limitations General appearance: alert, in no apparent distress Head exam: Present: atraumatic, normocephalic, normal inspection Eye exam: Present: normal appearance, PERRL, EOMI. Absent: scleral icterus, conjunctival injection, periorbital swelling ENT exam: Present: normal exam, mucous membranes moist Neck exam: Present: normal inspection. Absent: tenderness, meningismus, lymphadenopathy Respiratory exam: Present: normal lung sounds bilaterally. Absent: respiratory distress, wheezes, rales, rhonchi, stridor Cardiovascular Exam: Present: regular rate, normal rhythm, normal heart sounds. Absent: systolic murmur, diastolic murmur, rubs, gallop, clicks GI/Abdominal exam: Present: soft, tenderness (Suprapubic tenderness), normal bowel sounds. Absent: distended, guarding, rebound, rigid External exam: Present: normal external exam. Absent: erythema, swelling Speculum exam: Present: vaginal discharge. Absent: normal speculum exam, erythema, cervical discharge, vaginal bleeding, foreign body By manual exam: Present: normal by manual exam. Absent: cervical motion tenderness, adnexal tenderness Extremities exam: Present: normal inspection, full ROM, normal capillary refill. Absent: tenderness, pedal edema, joint swelling, calf tenderness Back exam: Present: normal inspection, full ROM Neurological exam: Present: alert, oriented X3, CN II-XII intact Psychiatric exam: Present: normal affect, normal mood Skin exam: Present: warm, dry, intact, normal color. Absent: rash Course Vital Signs 08/17/19 05:37 Temperature 98.1 F Pulse Rate 98 Respiratory 18 Rate Blood Pressure 118/87 O2 Sat by Pulse 99 Oximetry Medical Decision Making - Medical Decision Making Patient's 29-year-old female concerns. Dysuria and abnormal vaginal discharge. Patient's had symptoms for one week. At this time a GGT chest is negative. She does use NuvaRing for control. She did have minimal vaginal discharge on exam. I discussed prophylactic treatment for any C is until cultures were returned. Patient is agreeable to this. So she is treated with 1 g of azithromycin and IM Rocephin and Flagyl. At this time patient's urinalysis is positive for infection with over 20 white blood cells. Urine culture will be completed. Discussed that she was discharged Patient on short course of antibiotics. Discussed follow-up with PCP. - Lab Data Lab Results 08/17/19 08/17/19 08/17/19 Range/Units 06:05 06:05 06:24 Urine Color Light Yellow Urine Appearance Cloudy H (Clear) Urine pH 6.0 (5.0-8.0) Ur Specific [place] 1.011 (1.001-1.035) Urine Protein Negative (Negative) Urine Glucose (UA) Negative (Negative) Urine Ketones Negative (Negative) Urine Blood Negative (Negative) Urine Nitrite Negative (Negative) Urine Bilirubin Negative (Negative) Urine Urobilinogen <2.0 (<2.0) mg/dL Ur Leukocyte Esterase Large H (Negative) Urine RBC 2 (0-5) /hpf Urine WBC 29 H (0-5) /hpf Ur Squamous Epith Cells 8 H (0-4) /hpf Urine Bacteria Rare H (None) /hpf Urine HCG, Qual Not Detected (Not Detectd) Trichomonas Ag (Rapid) Negative (Negative) Disposition Clinical Impression: UTI (urinary tract infection) Disposition: HOME SELF-CARE Condition: Good Additional Instructions: Patient is to take the entire antibiotic prescription. Use diflucan for possible yeast infection afterwards. Follow-up with your primary care physician. Return to the ED if any alarming signs or symptoms occur. Prescriptions: Fluconazole [Diflucan] 150 mg PO DAILY #2 tab Nitrofurantoin Monohyd/M-Cryst [Macrobid] 100 mg PO Q12HR #14 cap Phenazopyridine HCl [Pyridium] 100 mg PO TID #9 tab Is patient prescribed a controlled substance at d/c from ED?: No Referrals: Ray Ward MD [Primary Care Provider] - 1-2 days Time of Disposition: 06:52
[2019-08-17 07:20] VITALS: BP 124/77; PULSE 61; RESP 16
[2019-08-18 14:34] LABS: C. trachomatis,PCR Negative (Neg,Equiv); Chlamydia trachomatis Source Vagina; N. gonorrhoeae,PCR Negative (Neg,Equiv); Neisseria Source Vagina
== END 2019-08-17 07:20 | disposition home or self-care (01) ==
LOC: EC 05:33
DX: N39.0 Urinary tract infection, site not specified (principal); Z79.3 Long term (current) use of hormonal contraceptives; Z87.891 Personal history of nicotine dependence; Z88.6 Allergy status to analgesic agent
CPT/HCPCS: 81001; 81025; 87808; 87491; 87591; 87070; 87086; 96372; 99284; J0696

== ENCOUNTER 2019-11-24 19:54 | Emergency (ER) | payer OTHER ==
[2019-11-24 20:10] VITALS: BP 114/60; PULSE 83; RESP 20; TEMP 99.5
[2019-11-24 21:02] LABS: Appearance,Urine Clear (Clear); Bilirubin,Urine Negative (Negative); Blood,Urine Negative (Negative); Color,Urine Yellow; Glucose,Urine (UA) Negative (Negative); Ketones,Urine Negative (Negative); Leukocyte Esterase,Urine Negative (Negative); Nitrite,Urine Negative (Negative); PH, Urine 5.5 (5.0-8.0); Protein,Urine Negative (Negative); Specific Gravity,Urine 1.014 (1.001-1.035); Urobilinogen,Urine <2.0 mg/dL (<2.0)
[2019-11-24] MEDS ORDERED: AZITHROMYCIN 500 MG TAB PO STA (21:36)
[2019-11-24] MEDS ORDERED: FLUCONAZOLE 150 MG TAB PO STA (21:36)
[2019-11-24] MEDS ORDERED: cefTRIAXone 250 MG VIAL IM STA (21:36)
--- NOTE | 2019-11-24 21:59 | ED ---
General Adult HPI - General Chief complaint: Abdominal Pain Stated complaint: Urogenital Female Time Seen by Provider: 11/24/19 20:39 Source: patient, RN notes reviewed Mode of arrival: ambulatory Limitations: no limitations - History of Present Illness Initial comments: 29-year-old female with a past medical history of gestational diabetes, asthma presents to the emergency room for a chief complaint of vaginal discharge. Patient reports that she started to have a greenish white vaginal discharge a few days ago. Reports that it was somewhat itchy in the vulvar area. Patient denies any pelvic or abdominal pain. Denies fevers or chills. Patient denies dysuria. Patient was recently treated for gonorrhea chlamydia empirically.Patient has no other complaints at this time including shortness of breath, chest pain, abdominal pain, nausea or vomiting, headache, or visual changes. - Related Data Previous Rx's Medication Instructions Recorded Acetaminophen Tab [Tylenol] 650 mg PO Q6HR PRN tab 08/06/17 Ciprofloxacin HCl [Cipro] 500 mg PO BID #20 tablet 08/06/17 Omeprazole [PriLOSEC] 20 mg PO AC-BID #20 cap 08/06/17 methylPREDNISolone [Medrol] See Taper PO DAILY #18 tablet 08/07/17 Fluconazole [Diflucan] 150 mg PO DAILY #2 tab 08/17/19 Nitrofurantoin Monohyd/M-Cryst 100 mg PO Q12HR #14 cap 08/17/19 [Macrobid] Phenazopyridine HCl [Pyridium] 100 mg PO TID #9 tab 08/17/19 Fluconazole [Diflucan] 150 mg PO ONCE #1 tab 11/24/19 Allergies Allergy/AdvReac Type Severity Reaction Status Date / Time ibuprofen [From Motrin] Allergy Severe Anaphylaxis Verified 11/24/19 20:10 Review of Systems ROS Statement: Those systems with pertinent positive or pertinent negative responses have been documented in the HPI. ROS Other: All systems not noted in ROS Statement are negative. Past Medical History Past Medical History: Asthma, Diabetes Mellitus Additional Past Medical History / Comment(s): Sickle Cell Anemia trait, pyelonephritis 4-5 yrs ago, gestational diabetes History of Any Multi-Drug Resistant Organisms: None Reported Past Surgical History: Section Additional Past Surgical History / Comment(s): Eye surgery for strabismus bilaterally. cyst removal. Past Anesthesia/Blood Transfusion Reactions: No Reported Reaction Past Psychological History: ADD/ADHD Smoking Status: Never smoker Past Alcohol Use History: None Reported Past Drug Use History: Marijuana - Past Family History Mother Family Medical History: No Reported History Additional Family Medical History / Comment(s): Obesity Father History Unknown: Yes General Exam Limitations: no limitations General appearance: alert, in no apparent distress Head exam: Present: atraumatic, normocephalic, normal inspection Eye exam: Present: normal appearance, PERRL, EOMI. Absent: scleral icterus, conjunctival injection, periorbital swelling ENT exam: Present: normal exam, mucous membranes moist Neck exam: Present: normal inspection, full ROM. Absent: tenderness, meningismus, lymphadenopathy Respiratory exam: Present: normal lung sounds bilaterally. Absent: respiratory distress, wheezes, rales, rhonchi, stridor Cardiovascular Exam: Present: regular rate, normal rhythm, normal heart sounds. Absent: systolic murmur, diastolic murmur, rubs, gallop, clicks GI/Abdominal exam: Present: soft, normal bowel sounds. Absent: distended, tenderness, guarding, rebound, rigid External exam: Present: normal external exam. Absent: erythema, swelling, lesions, lacerations, ecchymosis Speculum exam: Present: vaginal discharge (White vaginal discharge noted). Absent: normal speculum exam, erythema, cervical discharge, vaginal bleeding, foreign body, tissue, laceration By manual exam: Present: normal by manual exam. Absent: cervical motion tenderness, adnexal tenderness, adnexal mass, uterine enlargement, uterine tenderness Course Vital Signs 11/24/19 20:07 Temperature 99.5 F Pulse Rate 83 Respiratory 20 Rate Blood Pressure 114/60 O2 Sat by Pulse 99 Oximetry Medical Decision Making - Medical Decision Making Urinalysis and hCG are negative. Trichomonas negative. I did offer to treat patient empirically for gonorrhea and chlamydia and she did wish to be treated. Patient will also be treated for yeast infection given physical exam findings of white curd-like discharge. This was sent to the pharmacy. - Lab Data Lab Results 11/24/19 11/24/19 11/24/19 Range/Units 20:46 20:46 21:00 Urine Color Yellow Urine Appearance Clear (Clear) Urine pH 5.5 (5.0-8.0) Ur Specific [place] 1.014 (1.001-1.035) Urine Protein Negative (Negative) Urine Glucose (UA) Negative (Negative) Urine Ketones Negative (Negative) Urine Blood Negative (Negative) Urine Nitrite Negative (Negative) Urine Bilirubin Negative (Negative) Urine Urobilinogen <2.0 (<2.0) mg/dL Ur Leukocyte Esterase Negative (Negative) Urine HCG, Qual Not Detected (Not Detectd) Trichomonas Ag (Rapid) Negative (Negative) Disposition Clinical Impression: Vaginal discharge Disposition: HOME SELF-CARE Condition: Good Instructions (If sedation given, give patient instructions): Vaginal Discharge (ED) Additional Instructions: please take yeast pill tomorrow. Please follow up on results. Do not have intercourse until you have these results. Return to the emergency room for any worsening symptoms. Prescriptions: Fluconazole [Diflucan] 150 mg PO ONCE #1 tab Is patient prescribed a controlled substance at d/c from ED?: No Referrals: Ray Ward MD [Primary Care Provider] - 1-2 days Time of Disposition: 21:57
[2019-11-25 15:53] LABS: C. trachomatis,PCR Negative (Neg,Equiv); Chlamydia trachomatis Source Urine; N. gonorrhoeae,PCR Negative (Neg,Equiv); Neisseria Source Urine
== END 2019-11-24 22:14 | disposition home or self-care (01) ==
LOC: EC 19:54
DX: N89.8 Other specified noninflammatory disorders of vagina (principal); Z88.6 Allergy status to analgesic agent
CPT/HCPCS: 81003; 81025; 87808; 87491; 87591; 87070; 99284; 96372; J0696

== ENCOUNTER 2021-01-23 10:56 | Emergency (ER) | payer OTHER ==
--- NOTE | 2021-01-23 11:19 | ED ---
General Adult HPI - General Stated complaint: aches/cough/wants covid test Time Seen by Provider: 01/23/21 11:00 Source: patient, RN notes reviewed Mode of arrival: ambulatory Limitations: no limitations - History of Present Illness Initial comments: this a 31-year-old female presents emergency Department chief complaint of fever cough congestion, body aches. Patient states symptoms started 2 days ago with bodyaches and progress to loss of taste, congestion, cough. Patient states she has diffuse body aches, no vomiting diarrhea constipation. No known sick contacts. Patient has known ALLERGY to ibuprofen. Patient offers no complaints. - Related Data Previous Rx's Medication Instructions Recorded Acetaminophen Tab [Tylenol] 650 mg PO Q6HR PRN tab 08/06/17 Ciprofloxacin HCl [Cipro] 500 mg PO BID #20 tablet 08/06/17 Omeprazole [PriLOSEC] 20 mg PO AC-BID #20 cap 08/06/17 methylPREDNISolone [Medrol] See Taper PO DAILY #18 tablet 08/07/17 Fluconazole [Diflucan] 150 mg PO DAILY #2 tab 08/17/19 Nitrofurantoin Monohyd/M-Cryst 100 mg PO Q12HR #14 cap 08/17/19 [Macrobid] Phenazopyridine HCl [Pyridium] 100 mg PO TID #9 tab 08/17/19 Fluconazole [Diflucan] 150 mg PO ONCE #1 tab 11/24/19 Allergies Allergy/AdvReac Type Severity Reaction Status Date / Time ibuprofen [From Motrin] Allergy Severe Anaphylaxis Verified 01/23/21 11:20 Review of Systems ROS Statement: Those systems with pertinent positive or pertinent negative responses have been documented in the HPI. ROS Other: All systems not noted in ROS Statement are negative. Past Medical History Past Medical History: Asthma, Diabetes Mellitus Additional Past Medical History / Comment(s): Sickle Cell Anemia trait, pyelonephritis 4-5 yrs ago, gestational diabetes History of Any Multi-Drug Resistant Organisms: None Reported Past Surgical History: Section Additional Past Surgical History / Comment(s): Eye surgery for strabismus bilaterally. cyst removal. Past Anesthesia/Blood Transfusion Reactions: No Reported Reaction Past Psychological History: ADD/ADHD Smoking Status: Never smoker Past Alcohol Use History: None Reported Past Drug Use History: Marijuana - Past Family History Mother Family Medical History: No Reported History Additional Family Medical History / Comment(s): Obesity Father History Unknown: Yes Course Vital Signs 01/23/21 11:13 Temperature 98.9 F Pulse Rate 90 Respiratory 18 Rate Blood Pressure 120/71 O2 Sat by Pulse 99 Oximetry Medical Decision Making - Medical Decision Making patient is positive for: 19. Patient received monoclonal antibodies. Patient will be discharged in stable condition. - Lab Data Lab Results 01/23/21 Range/Units 11:18 Coronavirus (PCR) Detected A (Not Detectd) Disposition Clinical Impression: COVID-19 Disposition: HOME SELF-CARE Condition: Stable Instructions (If sedation given, give patient instructions): Coronavirus Disease 2019 (COVID-19) Additional Instructions: Please return to the Emergency Department if symptoms worsen or any other concerns. Is patient prescribed a controlled substance at d/c from ED?: No Referrals: Ray Ward MD [Primary Care Provider] - 1-2 days Time of Disposition: 11:50
[2021-01-23 11:20] VITALS: RESP 18
--- NOTE | 2021-01-23 11:48 | XR ---
EXAMINATION TYPE: XR chest 2V DATE OF EXAM: 01/23/2021 COMPARISON: Chest x-ray 01/22/2019 HISTORY: Cough, congestion TECHNIQUE: Frontal and lateral views of the chest are obtained. FINDINGS: There is no focal air space opacity, pleural effusion, or pneumothorax seen. The cardiac silhouette size is within normal limits. The osseous structures are intact. IMPRESSION: No acute cardiopulmonary process.
[2021-01-23] MEDS ORDERED: SODIUM CHLORIDE 0.9% 50 ML IVPB ONE (12:00)
[2021-01-23] MEDS ORDERED: CASIRIVIMAB (REGN10933) (EUA) 600 MG, IMDEVIMAB (REGN10987) (EUA) 600 MG in SODIUM CHLO... IVPB ONE (13:00)
[2021-01-23] MEDS ORDERED: ACETAMINOPHEN TAB 325 MG TAB PO STA (14:34)
[2021-01-23 14:40] VITALS: BP 137/95; PULSE 98; TEMP 101.6
== END 2021-01-23 14:40 | disposition home or self-care (01) ==
LOC: EC 10:56
DX: U07.1 COVID-19 (principal); E11.9 Type 2 diabetes mellitus without complications; J45.909 Unspecified asthma, uncomplicated; F12.90 Cannabis use, unspecified, uncomplicated; Z79.899 Other long term (current) drug therapy
CPT/HCPCS: 99283 ×2; 96365 ×2; 87635; 71046; M0243; Q0243